=== PATIENT | female | born 2000 | race Caucasian/White ===

== ENCOUNTER 2025-04-01 13:45 | Outpatient (RCR) | payer OTHER, SELFPAY ==
--- NOTE | 2024-12-31 16:48 | OT.OPPOC ---
Physical, Occupational & Speech Therapy At [facility] Rolando Akbar [id number] 2000 Visit Care Team Role Provider Type Doctor MD Aretha Family Provider Non-Staff Primary Care Provider Address: Phone: Fax: Jose Juan Harris DO Attending Provider Non-Staff Referring Provider Address: [address] [place] [address], [id number] Occupational Therapy Plan of Care OT Outpatient Adult Evaluation Start: 12/31/24 14:30 Freq: Status: Active Protocol: Document 12/31/24 14:30 (Rec: 12/30/24 17:49 [id number]) General Information - Adult Visit Information Visit Number 1 of 24 Plan of Care Dates 12/31/24-03/25/25 Insurance no PA;no copay/deductible;max OT benefit: 12 total Information visits, including eval Session Time Visit Start Date 12/31/24 Visit Start Time 14:30 Visit Stop Time 15:30 Setting Treatment Setting Outpatient Care Visit Type Note Type Initial Evaluation Referral Referring Physician Dr. 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), and a benign-appearing lesion in the distal radial diaphysis Social Information Social History It pretty much hurts from my hands to my shoulders all the time Patient Questionnaires Quick Dash- Upper Extremity Quick Dash UE Score 68.2 Quick Dash UE 60 to 79% Impaired (Score 60-79) Impairment Quick Dash- Work and Sports Modules Quick Dash W&S Score W: 75 Quick Dash Work and 60 to 79% Impaired (Score 60-79) Sport Impairment Goals Objective Measurements Objective Cozen's (+ bilaterally), Wagoner (+ bilaterally), Measurements Lesia's (+ bilaterally), AROM/MMT WFL BUE, Treatment Treatment Patient engaged in initial evaluation including comprehensive history intake, review of recent left wrist MRI findings, and functional status assessment. Objective measurements obtained included bilateral upper extremity AROM for wrists, elbows, and forearms, palpation for tenderness and cyst location, special tests (positive Cozen?s, Mill?s, and Lesia?s bilaterally), and functional assessment using patient- reported outcomes. Education provided on joint protection strategies, concern for immune or inflammatory response with information on anti- inflammatory diets and nervous system regulation strategies, activity modification to reduce mechanical load to wrists and elbows, and gentle pain-free mobility exercises for wrists and forearms. Reviewed potential biomechanical contributors (wedding coordinator and load mechanics, carrying strategies for child) and discussed role of systemic inflammation in symptom presentation. Initiated gentle, pain-free tendon glides and isometric wrist extension (elbows flexed) as tolerated. Short Term Goals Short Term Goals Within 5 weeks: 1. Patient will demonstrate independence with a joint protection HEP including pain-free AROM and isometric strengthening for wrists and elbows to support ADL performance. 2. Patient will report at least a 1?2 point decrease in average pain during light functional activities (e.g., typing, holding a cup) as measured by numeric pain rating scale. 3. Patient will complete wedding coordinator strength assessment and demonstrate improved wedding coordinator strength by at least 3?5 lbs bilaterally without increase in pain. 4. Patient will verbalize and demonstrate 3 ergonomic or activity modification strategies to reduce mechanical load to wrists/elbows during childcare tasks . 5. Patient will tolerate at least 10 minutes of light functional use of BUEs without need to stop due to pain . Fish Hatchery Worker Goals Nursing Home Goals Within 10 weeks: 1. Patient will demonstrate improved perception of functional independence as demonstrated by a QuickDASH score of </=25. 2. Patient will report ability to complete essential childcare tasks (lifting/carrying child, dressing, meal prep) with pain =2/10. 3. Per patient report, patient will complete a full day of light household and childcare activities without increased pain >1 point from baseline. 4. Patient will demonstrate tolerance for progressive resistive strengthening of wrists and forearms without symptom exacerbation. Assessment/Plan Assessment Patient Response Good Rehabilitation Good Potential Impairments ADLs,Coordination/Dexterity,Flexibility,Functional Identified Activities,Motor Function,Pain,Range of Motion, Recreational Activities,Meaningful Activities,Stiffness ,Work Capacity,Soft Tissue Mobility Treatment Assessment 24-year-old female referred for right wrist sprain, left lateral epicondylitis, and ganglion cyst of the left wrist, with MRI confirming a 3.1 cm dorsal ganglion cyst at the scapholunate articulation, a high- grade central disc tear of the triangular fibrocartilage complex (TFCC), and a benign-appearing lesion in the distal radial diaphysis. She reports symptom onset approximately four months ago with no clear inciting injury, bilateral presentation of pain in wrists, forearms, and elbows radiating proximally into biceps and scapulae, and constant discomfort rated 4?5/10. Pain is aggravated by gripping, lifting, pushing, typing, writing, washing dishes, and caring for her [id number]-zos child. She demonstrates positive provocative testing for lateral epicondylitis and De Quervain?s tenosynovitis bilaterally, with diffuse pain patterns inconsistent with isolated mechanical injury, suggesting a possible systemic inflammatory process. Patient has a rheumatology appointment scheduled for further evaluation of potential autoimmune etiology given symptom chronicity, distribution, and coexisting systemic complaints. At present, she is significantly limited in ADL and childcare activities for her age and prior functional level. She will benefit from skilled occupational therapy focused on pain management, joint protection, gentle mobility, activity modification, and gradual strengthening while awaiting further medical workup. Reviewed with Goals,Progress Being Made,Home Exercise Program Patient Patient Good Understanding Plan Length of treatment 12 (weeks) Plan of Care Start 12/31/24 Date Plan of Care End 03/25/25 Date Treatment Frequency Twice a Week Treatment Duration 45 Minutes Treatment Emphasis Program Lead/pinch strength testing, kapandji, Next Session Therapeutic Contents Active Range of Motion,Adaptive Equipment Education, Client Education,Functional Activities,Group Therapy, Home Exercise Program,Manual Therapy,Education,Self- Care,Stretching/Flexibility Activities,Therapeutic Activities,Therapeutic Exercises,Work Conditioning, Modalities Modalities As Needed Types of Modalities Ice Massage,Other Additional Types of MHP, Paraffin Modalities Patient Instruction Home Exercise Program,Plan of Care,Questions/Concerns Patient Continue with Current Program Recommendations Suggested Referrals Other Other Suggested functional medicine, rheumatology (pending appt Referrals scheduled per pt) Electronically Signed by: Isabella Haro OT 12/31/24 [id number] If you are in agreement with this Plan of Care, please return a signed and dated copy. I have reviewed this Plan of Care and certify that the skilled therapy services above are required to meet the patient?s needs. Physician Signature Date Printed Name and Credentials Clinical Instructor Signature Printed Name and Credentials
--- NOTE | 2025-01-05 12:43 | OT.OP.TRT ---
Visit Care Team Role Provider Type Doctor MD Aretha Family Provider Non-Staff Primary Care Provider Specialty: Medical Address: Phone: Fax: Email: Jose Juan Harris DO Attending Provider Non-Staff Referring Provider Specialty: Orthopedic Surgery Address: [address] [place] [address], [id number] Email: Occupational Therapy Treatment Note OT Outpatient Treatment Note - Adult Start: 12/30/24 17:44 Freq: Status: Active Protocol: Document 01/05/25 10:45 (Rec: 01/05/25 08:20 [id number]) OT Outpatient Adult Treatment Note Session Time Visit Start Date 01/05/25 Visit Start Time 10:45 Visit Stop Time 11:30 Visit Information Visit Number 1 of 24 Plan of Care Dates 12/31/24-03/25/25 Insurance no PA;no copay/deductible;max OT benefit: 12 total Information visits Setting Treatment Setting Outpatient Care Visit Type Note Type Treatment Note - Subjective Identification Type Name Identification Medical Record Reconciled With Observations I have no idea when I would have hurt my wrist? (re: TFCC injury) - Objective Objective Right hand: Measurements Turret Lathe Machinist: (/lb) - Average 25lb 3 Jaw maxwell pinch - 8lb Lateral pinch - 16lb Left hand: Turret Lathe Machinist: (05/02/16lb) - Average 14lb 3 Jaw maxwell pinch - 11.5lb Lateral pinch - 13lb Kapandji scores: R - 2, L - 3 Short Term Goals Within 5 weeks: 1. Patient will demonstrate independence with a joint protection HEP including pain-free AROM and isometric strengthening for wrists and elbows to support ADL performance. 2. Patient will report at least a 1?2 point decrease in average pain during light functional activities (e.g., typing, holding a cup) as measured by numeric pain rating scale. 3. Patient will complete physical meteorologist strength assessment and demonstrate improved physical meteorologist strength by at least 3?5 lbs bilaterally without increase in pain. 4. Patient will verbalize and demonstrate 3 ergonomic or activity modification strategies to reduce mechanical load to wrists/elbows during childcare tasks . 5. Patient will tolerate at least 10 minutes of light functional use of BUEs without need to stop due to pain . Service Control Operator Goals Within 10 weeks: 1. Patient will demonstrate improved perception of functional independence as demonstrated by a QuickDASH score of </=25. 2. Patient will report ability to complete essential childcare tasks (lifting/carrying child, dressing, meal prep) with pain =2/10. 3. Per patient report, patient will complete a full day of light household and childcare activities without increased pain >1 point from baseline. 4. Patient will demonstrate tolerance for progressive resistive strengthening of wrists and forearms without symptom exacerbation. - Treatment 1 Descriptor Patient participated in therapeutic application of moist heat pack to bilateral wrists/forearms for 10 minutes for soft tissue warm-up and pain modulation while reviewing subjective history and current concerns . Patient reported episodes of hand ?locking? when holding cold objects (e.g., beverage can), though not when immersed in cold water. Home exercise program was briefly reviewed, including tendon glides and wrist/ hand AROM, with plan for further reinforcement next visit. Kinesiotape was applied bilaterally for lateral epicondylitis and De Quervain?s tenosynovitis, with additional supportive application on the left wrist for TFCC injury. Patient reported the tape felt supportive and comfortable. Education provided regarding purpose and expected outcomes of kinesiotaping, skin care, and monitoring for adverse reactions (redness, itching, blistering). - Assessment Patient Response to Good Treatment Rehabilitation Good Potential Impairments ADLs,Coordination/Dexterity,Flexibility,Functional Identified Activities,Motor Function,Pain,Weakness,Range of Motion ,Recreational Activities,Meaningful Activities, Stiffness,Work Capacity,Soft Tissue Mobility Progress Towards Good Progress Goals Assessment of Improving Overall Progress Assessment of Patient continues to present with complex bilateral Improvement upper extremity pain and functional limitations. Turret Lathe Machinist strength is reduced bilaterally, more pronounced on the left (R: 25 lb, L: 14 lb), with variable pinch strength that does not follow a clear dominance pattern (R stronger in lateral pinch, L stronger in 3-jaw maxwell). These findings further support her report of diffuse, non-mechanical pain and weakness patterns. Episodes of ?locking? with cold exposure suggest possible neurovascular or autonomic involvement in addition to underlying structural wrist pathology and systemic inflammatory contributions. No clear mechanism was identified for left TFCC injury, and chronicity remains uncertain. Today?s session prioritized pain modulation, baseline strength measurement, and proprioceptive support through thermal modalities and kinesiotaping. Patient demonstrated positive subjective response to taping, reporting increased support and decreased strain at the wrists. Given her significant functional restrictions, objective weakness, and systemic symptom profile, she will continue to benefit from skilled OT to support joint protection, activity modification, and functional use of the upper extremities while awaiting rheumatology evaluation. Home Exercise tendon glides of hand, AROM (wrist flex/ext, ulnar/ Program radial deviation, supination/pronation), isometric wrist ext, scapular retraction/depression, chin tucks in supine, pec stretch, supine thoracic extension Reviewed with Goals,Progress Being Made,Home Exercise Program Patient/Caregiver Patient/Caregiver Good Understanding - Plan Therapy Continue with Current Program Recommendations Amount of Therapy 3-4 Months Recommended Frequency of Twice a Week Treatment Length of Session 45 Minutes Treatment Emphasis review HEP Next Session Therapeutic Contents Active Range of Motion,Adaptive Equipment Education, Client Education,Functional Activities,Group Therapy, Home Exercise Program,Manual Therapy,Education,Self- Care,Stretching/Flexibility Activities,Therapeutic Activities,Therapeutic Exercises,Work Conditioning, Modalities Modalities As Needed Types of Modalities Ice Massage,Other Additional Types of MHP, Paraffin Modalities Other Referrals functional medicine, rheumatology (pending appt scheduled per pt)
--- NOTE | 2025-01-08 13:33 | OT.OP.TRT ---
Visit Care Team Role Provider Type Doctor MD Aretha Family Provider Non-Staff Primary Care Provider Specialty: Medical Address: Phone: Fax: Email: Jose Juan Harris DO Attending Provider Non-Staff Referring Provider Specialty: Orthopedic Surgery Address: [address] [place] [address], [id number] Email: Occupational Therapy Treatment Note OT Outpatient Treatment Note - Adult Start: 12/30/24 17:44 Freq: Status: Active Protocol: Document 01/08/25 11:30 (Rec: 01/07/25 17:23 [id number]) OT Outpatient Adult Treatment Note Session Time Visit Start Date 01/08/25 Visit Start Time 11:30 Visit Stop Time 12:15 Visit Information Visit Number 3 of 24 Plan of Care Dates 12/31/24-03/25/25 Insurance no PA;no copay/deductible;max OT benefit: 12 total Information visits Setting Treatment Setting Outpatient Care Visit Type Note Type Treatment Note - Subjective Identification Type Name Identification Medical Record Reconciled With Observations I have a rheumatology appt next week and a new referral to see a neurologist Patient/Caregiver Good Compliance with Home Exercise Program - Objective Short Term Goals Within 5 weeks: 1. Patient will demonstrate independence with a joint protection HEP including pain-free AROM and isometric strengthening for wrists and elbows to support ADL performance. 2. Patient will report at least a 1?2 point decrease in average pain during light functional activities (e.g., typing, holding a cup) as measured by numeric pain rating scale. 3. Patient will complete sales manager prearranged funerals strength assessment and demonstrate improved sales manager prearranged funerals strength by at least 3?5 lbs bilaterally without increase in pain. 4. Patient will verbalize and demonstrate 3 ergonomic or activity modification strategies to reduce mechanical load to wrists/elbows during childcare tasks . 5. Patient will tolerate at least 10 minutes of light functional use of BUEs without need to stop due to pain . Scow Captain Goals Within 10 weeks: 1. Patient will demonstrate improved perception of functional independence as demonstrated by a QuickDASH score of </=25. 2. Patient will report ability to complete essential childcare tasks (lifting/carrying child, dressing, meal prep) with pain =2/10. 3. Per patient report, patient will complete a full day of light household and childcare activities without increased pain >1 point from baseline. 4. Patient will demonstrate tolerance for progressive resistive strengthening of wrists and forearms without symptom exacerbation. - Treatment 1 Descriptor Patient participated in paraffin warm-up to bilateral hands/wrists for pain modulation and soft tissue preparation. Reviewed and practiced home exercise program including tendon glides, wrist AROM, isometric wrist extension, and scapular retraction/depression, with good return demonstration with mod verbal cues for proper positioning and muscle activation and patient reporting compliance. Patient shared she has been practicing [employer]rape yoga independently and notices reduced tension and stress following sessions. Vibrational therapy was provided using tuning fork sequence targeting parasympathetic activation, wrist/elbow pain modulation, and sensory integration, with patient reporting overall positive response and reduced tension afterward. Kinesiotape was reapplied with ongoing education provided and tape applied to bilateral forearms/wrists for support of lateral epicondylitis, De Quervain?s tenosynovitis, and left TFCC region. Patient reported tape continues to provide support and minimizes symptoms, and education was reviewed on tape maintenance and monitoring skin for irritation. Verbal Cues Mod Cues Exercises 1 Descriptor 1x5 reps for return demo, pt reporting good compliance requiring on going reinforcement of proper positioning/ posture Tendon glides/wrist AROM Isometric wrist ext(dorsal) Scapular retraction/depression Towel slides Side Both Visual Cues Mod Cues Verbal Cues Mod Cues - Assessment Patient Response to Good Treatment Rehabilitation Good Potential Impairments ADLs,Coordination/Dexterity,Flexibility,Functional Identified Activities,Motor Function,Pain,Weakness,Range of Motion ,Recreational Activities,Meaningful Activities, Stiffness,Work Capacity,Soft Tissue Mobility Progress Towards Good Progress Goals Assessment of Improving Overall Progress Assessment of Patient demonstrates good engagement in her home Improvement exercise program and complementary practices such as Yin yoga, with subjective improvements in stress regulation. She continues to benefit from multimodal interventions including thermal modalities, therapeutic exercise, vibrational therapy, and kinesiotaping for symptom management and functional support. Her positive response to both tuning fork sequence and kinesiotape suggests these strategies are helpful in decreasing pain perception and improving proprioceptive support for the wrists. Pt reporting upcoming rheumatology appt and new referral for neurology consult for further investigation of systemic symptoms. Ongoing skilled OT remains indicated to reinforce exercise progression, provide joint protection strategies, and manage symptoms while she awaits further medical workup with rheumatology and neurology. Home Exercise tendon glides of hand, AROM (wrist flex/ext, ulnar/ Program radial deviation, supination/pronation), isometric wrist ext, scapular retraction/depression, chin tucks in supine, pec stretch, supine thoracic extension Reviewed with Goals,Progress Being Made,Home Exercise Program Patient/Caregiver Patient/Caregiver Good Understanding - Plan Therapy Continue with Current Program Recommendations Amount of Therapy 3-4 Months Recommended Frequency of Twice a Week Treatment Length of Session 45 Minutes Treatment Emphasis review HEP Next Session Therapeutic Contents Active Range of Motion,Adaptive Equipment Education, Client Education,Functional Activities,Group Therapy, Home Exercise Program,Manual Therapy,Education,Self- Care,Stretching/Flexibility Activities,Therapeutic Activities,Therapeutic Exercises,Work Conditioning, Modalities Modalities As Needed Types of Modalities Ice Massage,Other Additional Types of MHP, Paraffin Modalities Other Referrals functional medicine, rheumatology (pending appt scheduled per pt)
--- NOTE | 2025-01-12 15:49 | OT.OP.TRT ---
Visit Care Team Role Provider Type Doctor MD Aretha Family Provider Non-Staff Primary Care Provider Specialty: Medical Address: Phone: Fax: Email: Jose Juan Harris DO Attending Provider Non-Staff Referring Provider Specialty: Orthopedic Surgery Address: [address] [place] [address], [id number] Email: Occupational Therapy Treatment Note OT Outpatient Treatment Note - Adult Start: 12/30/24 17:44 Freq: Status: Active Protocol: Document 01/12/25 13:00 (Rec: 01/12/25 10:02 [id number]) OT Outpatient Adult Treatment Note Session Time Visit Start Date 01/12/25 Visit Start Time 13:00 Visit Stop Time 13:45 Visit Information Visit Number 4 of 24 Plan of Care Dates 12/31/24-03/25/25 Insurance no PA;no copay/deductible;max OT benefit: 12 total Information visits Setting Treatment Setting Outpatient Care Visit Type Note Type Treatment Note - Subjective Identification Type Name Identification Medical Record Reconciled With Observations My hands have been locking up more Patient/Caregiver Good Compliance with Home Exercise Program - Objective Short Term Goals Within 5 weeks: 1. Patient will demonstrate independence with a joint protection HEP including pain-free AROM and isometric strengthening for wrists and elbows to support ADL performance. 2. Patient will report at least a 1?2 point decrease in average pain during light functional activities (e.g., typing, holding a cup) as measured by numeric pain rating scale. 3. Patient will complete explosive expert strength assessment and demonstrate improved explosive expert strength by at least 3?5 lbs bilaterally without increase in pain. 4. Patient will verbalize and demonstrate 3 ergonomic or activity modification strategies to reduce mechanical load to wrists/elbows during childcare tasks . 5. Patient will tolerate at least 10 minutes of light functional use of BUEs without need to stop due to pain . Detention Goals Within 10 weeks: 1. Patient will demonstrate improved perception of functional independence as demonstrated by a QuickDASH score of </=25. 2. Patient will report ability to complete essential childcare tasks (lifting/carrying child, dressing, meal prep) with pain =2/10. 3. Per patient report, patient will complete a full day of light household and childcare activities without increased pain >1 point from baseline. 4. Patient will demonstrate tolerance for progressive resistive strengthening of wrists and forearms without symptom exacerbation. - Treatment 1 Descriptor Patient engaged in education and discussion regarding strategies for nervous system regulation and distinction between autoimmune disease processes versus peripheral nerve irritation. Reviewed lifestyle and self-regulation strategies including Yin yoga, breathwork, meditation, and relaxation practices. Discussed use of Epsom salt soaks or magnesium topical applications for muscle relaxation, as patient does not have access to a bathtub. Patient verbalized understanding of strategies and interest in exploring options that best fit her preferences. Exercises 1 Descriptor - Tendon glides ? slow, pain-free through all four positions. - Wrist AROM ? flex/ext, RD/UD, pronation/supination ( document which ranges increase pain). - Isometric wrist extension ? 3?5 reps, 5 sec holds. - Scapular retraction/depression ? seated/supine with cues for posture. - Chin tucks (supine, with towel roll). - Thoracic extension over towel/foam roll. - Doorway pec stretch. Visual Cues Min Cues Verbal Cues Min Cues - Assessment Patient Response to Good Treatment Rehabilitation Good Potential Impairments ADLs,Coordination/Dexterity,Flexibility,Functional Identified Activities,Motor Function,Pain,Weakness,Range of Motion ,Recreational Activities,Meaningful Activities, Stiffness,Work Capacity,Soft Tissue Mobility Progress Towards Good Progress Goals Assessment of Improving Overall Progress Assessment of Patient demonstrated good participation in today?s Improvement session with appropriate response to therapeutic exercise review and continued benefit from nervous system regulation strategies. She required only minimal cueing to complete targeted exercises with correct form and showed good understanding of how to integrate them at home. Education on self-regulation strategies was well received, and patient is motivated to trial relaxation practices that support downregulation. She continues to benefit from a combined approach of exercise for joint/muscle stability and therapeutic activity for nervous system support, and will progress as tolerated in future sessions. Home Exercise tendon glides of hand, AROM (wrist flex/ext, ulnar/ Program radial deviation, supination/pronation), isometric wrist ext, scapular retraction/depression, chin tucks in supine, pec stretch, supine thoracic extension Reviewed with Goals,Progress Being Made,Home Exercise Program Patient/Caregiver Patient/Caregiver Good Understanding - Plan Therapy Continue with Current Program Recommendations Amount of Therapy 3-4 Months Recommended Frequency of Twice a Week Treatment Length of Session 45 Minutes Treatment Emphasis review HEP Next Session Therapeutic Contents Active Range of Motion,Adaptive Equipment Education, Client Education,Functional Activities,Group Therapy, Home Exercise Program,Manual Therapy,Education,Self- Care,Stretching/Flexibility Activities,Therapeutic Activities,Therapeutic Exercises,Work Conditioning, Modalities Modalities As Needed Types of Modalities Ice Massage,Other Additional Types of MHP, Paraffin Modalities Other Referrals functional medicine, rheumatology (pending appt scheduled per pt)
--- NOTE | 2025-01-15 09:35 | OT.OP.TRT ---
Visit Care Team Role Provider Type Doctor MD Aretha Family Provider Non-Staff Primary Care Provider Specialty: Medical Address: Phone: Fax: Email: Jose Juan Harris DO Attending Provider Non-Staff Referring Provider Specialty: Orthopedic Surgery Address: [address] [place] [address], [id number] Email: Occupational Therapy Treatment Note OT Outpatient Treatment Note - Adult Start: 12/30/24 17:44 Freq: Status: Active Protocol: Document 01/15/25 08:15 (Rec: 01/14/25 17:49 [id number]) OT Outpatient Adult Treatment Note Session Time Visit Start Date 01/15/25 Visit Start Time 08:15 Visit Stop Time 09:00 Visit Information Visit Number 5 of 24 Plan of Care Dates 12/31/24-03/25/25 Insurance no [place];no copay/deductible;max OT benefit: 12 total Information visits Setting Treatment Setting Outpatient Care Visit Type Note Type Treatment Note - Subjective Identification Type Name Identification Medical Record Reconciled With Observations I am noticing more mobility in my shoulders for sure, but the photovoltaic subcontractor seemed really sure it wasn't lupus Patient/Caregiver Good Compliance with Home Exercise Program - Objective Short Term Goals Within 5 weeks: 1. Patient will demonstrate independence with a joint protection HEP including pain-free AROM and isometric strengthening for wrists and elbows to support ADL performance. 2. Patient will report at least a 1?2 point decrease in average pain during light functional activities (e.g., typing, holding a cup) as measured by numeric pain rating scale. 3. Patient will complete shot blast equipment operator strength assessment and demonstrate improved shot blast equipment operator strength by at least 3?5 lbs bilaterally without increase in pain. 4. Patient will verbalize and demonstrate 3 ergonomic or activity modification strategies to reduce mechanical load to wrists/elbows during childcare tasks . 5. Patient will tolerate at least 10 minutes of light functional use of BUEs without need to stop due to pain . Certified Medical Biller Goals Within 10 weeks: 1. Patient will demonstrate improved perception of functional independence as demonstrated by a QuickDASH score of </=25. 2. Patient will report ability to complete essential childcare tasks (lifting/carrying child, dressing, meal prep) with pain =2/10. 3. Per patient report, patient will complete a full day of light household and childcare activities without increased pain >1 point from baseline. 4. Patient will demonstrate tolerance for progressive resistive strengthening of wrists and forearms without symptom exacerbation. - Treatment 1 Descriptor Kinesiotape was reapplied bilaterally for joint and tendon support, including dorsal forearm strip for extensors/lateral epicondyle and Y-cuff around the wrist for TFCC/general stability. Patient reported continued benefit from taping. Vibrational therapy was performed using both weighted and unweighted tuning forks; minimal response was noted with weighted application, however patient reported a strong positive sensory response during unweighted clearing passes, describing the sensation as warmth or light touch without discomfort. Patient education provided regarding recent rheumatology labs and impressions, including discussion of differential diagnoses and available specialty resources. Reviewed the role of functional medicine and/or data report analyst consultation for guidance with anti-inflammatory diets and supplementation. Support groups and community resources for individuals with chronic autoimmune or systemic pain conditions were recommended. Patient demonstrated understanding and expressed interest in exploring integrative approaches. Exercises 1 Descriptor - Tendon glides ? slow, pain-free through all four positions. - Wrist AROM ? flex/ext, RD/UD, pronation/supination ( document which ranges increase pain). - Isometric wrist extension ? 3?5 reps, 5 sec holds. - Scapular retraction/depression ? seated/supine with cues for posture. - Chin tucks (supine, with towel roll). - Thoracic extension over towel/foam roll. - Doorway pec stretch. Visual Cues Min Cues Verbal Cues Min Cues - Assessment Patient Response to Good Treatment Rehabilitation Good Potential Impairments ADLs,Coordination/Dexterity,Flexibility,Functional Identified Activities,Motor Function,Pain,Weakness,Range of Motion ,Recreational Activities,Meaningful Activities, Stiffness,Work Capacity,Soft Tissue Mobility Progress Towards Good Progress Goals Assessment of Improving Overall Progress Assessment of Patient continues to demonstrate benefit from Improvement multimodal treatment including supportive taping, targeted exercise, and vibrational therapy. Stronger response was noted with unweighted tuning fork clearing passes, suggesting sensitivity to sensory integration input. She demonstrates good carryover of home program with minimal cueing, and subjective report of increased shoulder mobility indicates early positive adaptation. Ongoing OT remains indicated to support joint protection, functional strengthening, and nervous system regulation while interdisciplinary evaluation continues. Home Exercise tendon glides of hand, AROM (wrist flex/ext, ulnar/ Program radial deviation, supination/pronation), isometric wrist ext, scapular retraction/depression, chin tucks in supine, pec stretch, supine thoracic extension Reviewed with Goals,Progress Being Made,Home Exercise Program Patient/Caregiver Patient/Caregiver Good Understanding - Plan Therapy Continue with Current Program Recommendations Amount of Therapy 3-4 Months Recommended Frequency of Twice a Week Treatment Length of Session 45 Minutes Therapeutic Contents Active Range of Motion,Adaptive Equipment Education, Client Education,Functional Activities,Group Therapy, Home Exercise Program,Manual Therapy,Education,Self- Care,Stretching/Flexibility Activities,Therapeutic Activities,Therapeutic Exercises,Work Conditioning, Modalities Modalities As Needed Types of Modalities Ice Massage,Other Additional Types of MHP, Paraffin Modalities Other Referrals functional medicine, rheumatology (pending appt scheduled per pt)
--- NOTE | 2025-01-19 13:00 | OT.OP.TRT ---
Visit Care Team Role Provider Type Doctor MD Aretha Family Provider Non-Staff Primary Care Provider Specialty: Medical Address: Phone: Fax: Email: Jose Juan Harris DO Attending Provider Non-Staff Referring Provider Specialty: Orthopedic Surgery Address: [address] [place] [address], [phone] Email: Occupational Therapy Treatment Note OT Outpatient Treatment Note - Adult Start: 12/30/24 17:44 Freq: Status: Active Protocol: Document 01/19/25 10:45 (Rec: 01/15/25 18:48 [id number]) OT Outpatient Adult Treatment Note Session Time Visit Start Date 01/19/25 Visit Start Time 10:45 Visit Stop Time 11:30 Visit Information Visit Number 6 of 24 Plan of Care Dates 12/31/24-03/25/25 Insurance no [place];no copay/deductible;max OT benefit: 12 total Information visits Setting Treatment Setting Outpatient Care Visit Type Note Type Treatment Note - Subjective Identification Type Name Identification Medical Record Reconciled With Observations My brother attempted to hurt himself this weekend so stress has been very high Patient/Caregiver Good Compliance with Home Exercise Program - Objective Short Term Goals Within 5 weeks: 1. Patient will demonstrate independence with a joint protection HEP including pain-free AROM and isometric strengthening for wrists and elbows to support ADL performance. 2. Patient will report at least a 1?2 point decrease in average pain during light functional activities (e.g., typing, holding a cup) as measured by numeric pain rating scale. 3. Patient will complete life skills worker strength assessment and demonstrate improved life skills worker strength by at least 3?5 lbs bilaterally without increase in pain. 4. Patient will verbalize and demonstrate 3 ergonomic or activity modification strategies to reduce mechanical load to wrists/elbows during childcare tasks . 5. Patient will tolerate at least 10 minutes of light functional use of BUEs without need to stop due to pain . Infantry Officer Goals Within 10 weeks: 1. Patient will demonstrate improved perception of functional independence as demonstrated by a QuickDASH score of </=25. 2. Patient will report ability to complete essential childcare tasks (lifting/carrying child, dressing, meal prep) with pain =2/10. 3. Per patient report, patient will complete a full day of light household and childcare activities without increased pain >1 point from baseline. 4. Patient will demonstrate tolerance for progressive resistive strengthening of wrists and forearms without symptom exacerbation. - Treatment 1 Descriptor Patient education provided on self-massage techniques for right rhomboid and trapezius tension using foam roller, therapy ball, or theracane at home. Education also included progression of home program to incorporate isometric wrist flexion/extension and gradual weight bearing through upper extremities within pain-free range. Tuning fork sequence performed, with patient reporting neutral response to weighted forks but strong sensory integration response to unweighted clearing passes, including unexpected referred vibration sensation in right gluteal region. Patient also shared subjective improvements in overall sustained energy, including ability to walk around the fair without post-activity collapse, and reports using regulation and pacing strategies effectively despite recent family stressors. Exercises 1 Descriptor Patient participated in review and progression of home exercise program. Completed tendon glides, gentle wrist AROM, scapular retraction/depression, and isometric wrist flexion/extension with good tolerance. Weight bearing through bilateral upper extremities was introduced in quadruped-modified positioning using table support, with and without dot discs. Patient reported tolerance up to approximately 25% body weight, with improved comfort using dot discs compared to table surface alone. Patient required minimal verbal cues for correct positioning and demonstrated good return demonstration for 1 set of 10 for complete/ progressed HEP. Reports home program exercises continue to feel beneficial and help decrease pain, with good compliance noted. Verbal Cues Min Cues Tolerance Good Complexity Upgraded - Assessment Patient Response to Good Treatment Rehabilitation Good Potential Impairments ADLs,Coordination/Dexterity,Flexibility,Functional Identified Activities,Motor Function,Pain,Weakness,Range of Motion ,Recreational Activities,Meaningful Activities, Stiffness,Work Capacity,Soft Tissue Mobility Progress Towards Good Progress Goals Assessment of Improving Overall Progress Assessment of Patient demonstrates ongoing functional gains, Improvement including improved activity tolerance, reduced post- activity fatigue, and increased tolerance for weight bearing through bilateral upper extremities. She remains highly compliant with home program and is receptive to education on self-management strategies. Continued multimodal treatment including therapeutic exercise progression, joint protection, nervous system regulation, and vibrational therapy remains indicated to support functional independence and symptom management. Home Exercise tendon glides of hand, AROM (wrist flex/ext, ulnar/ Program radial deviation, supination/pronation), isometric wrist ext, scapular retraction/depression, chin tucks in supine, pec stretch, supine thoracic extension. Progressed 01/19/25 adding isometric wrist flex/BUE weight bearing within pain free range Reviewed with Goals,Progress Being Made,Home Exercise Program Patient/Caregiver Patient/Caregiver Good Understanding - Plan Therapy Continue with Current Program Recommendations Amount of Therapy 3-4 Months Recommended Frequency of Twice a Week Treatment Length of Session 45 Minutes Treatment Emphasis manual therapy to R shoulder Next Session Therapeutic Contents Active Range of Motion,Adaptive Equipment Education, Client Education,Functional Activities,Group Therapy, Home Exercise Program,Manual Therapy,Education,Self- Care,Stretching/Flexibility Activities,Therapeutic Activities,Therapeutic Exercises,Work Conditioning, Modalities Modalities As Needed Types of Modalities Ice Massage,Other Additional Types of MHP, Paraffin Modalities Other Referrals functional medicine, rheumatology (pending appt scheduled per pt)
--- NOTE | 2025-01-27 15:29 | OT.OPPN ---
Current Diagnoses Ganglion, left wrist (01/27/25) Lateral epicondylitis, left elbow (01/27/25) Unspecified sprain of right wrist, subsequent encounter (01/27/25) OT Progress Note OT Outpatient Treatment Note - Adult Start: 12/30/24 17:44 Freq: Status: Active Protocol: Document 01/27/25 13:45 (Rec: 01/20/25 13:03 [id number]) OT Outpatient Adult Treatment Note Session Time Visit Start Date 01/27/25 Visit Start Time 13:45 Visit Stop Time 14:30 Visit Information Visit Number 7 of 24 Plan of Care Dates 12/31/24-03/25/25 Insurance no [place];no copay/deductible;max OT benefit: 12 total Information visits Setting Treatment Setting Outpatient Care Visit Type Note Type Progress Note - Subjective Identification Type Name Identification Medical Record Reconciled With Observations I can really see progress with being able to hold my daughter more and way less pain overall even though there is still some tingling/numbness sometimes Patient/Caregiver Good Compliance with Home Exercise Program - Objective Short Term Goals Within 5 weeks: 1. Patient will demonstrate independence with a joint protection HEP including pain-free AROM and isometric strengthening for wrists and elbows to support ADL performance. [PROGRESSING 01/27/25] 2. Patient will report at least a 1?2 point decrease in average pain during light functional activities (e.g., typing, holding a cup) as measured by numeric pain rating scale. [MET 01/27/25] 3. Patient will complete high school admissions representative strength assessment and demonstrate improved high school admissions representative strength by at least 3?5 lbs bilaterally without increase in pain. [PROGRESING ] 4. Patient will verbalize and demonstrate 3 ergonomic or activity modification strategies to reduce mechanical load to wrists/elbows during childcare tasks . [PROGRESSING 01/27/25] 5. Patient will tolerate at least 10 minutes of light functional use of BUEs without need to stop due to pain . [PROGRESSING 01/27/25] Intermediate Goals Within 10 weeks: 1. Patient will demonstrate improved perception of functional independence as demonstrated by a QuickDASH score of </=25. [PROGRESSING 01/27/25] 2. Patient will report ability to complete essential childcare tasks (lifting/carrying child, dressing, meal prep) with pain =2/10. [PROGRESSING 01/27/25] 3. Per patient report, patient will complete a full day of light household and childcare activities without increased pain >1 point from baseline. [PROGRESSING 03/13] 4. Patient will demonstrate tolerance for progressive resistive strengthening of wrists and forearms without symptom exacerbation. [PROGRESSING 01/27/25] - Treatment 1 Descriptor Patient participated in review and progression of therapeutic exercises with emphasis on postural and scapular stabilization. Current HEP includes thoracic extension, pectoralis stretching, modified planks at wall/table, and median/ulnar nerve flossing. Reviewed and reintroduced scapular retraction/depression and serratus punches, with addition of gentle levator scapulae stretching to be performed cautiously ( suggested once every other day to monitor tolerance). Patient required minimal cueing and demonstrated good return demonstration. She reports practicing foam rolling and trigger point release with tennis ball at home with good response. She described improved weight bearing tolerance during modified planks, noting no buckling, and reported decreased pain intensity overall (previously up to 6/10, now closer to 3/10 at worst). She was able to perform paperwork and childcare tasks with significantly less discomfort, though some mild cramping occurred after prolonged writing. Median/ulnar nerve glides were reviewed; patient reported they feel like a normal stretch without pain but may cause mild tingling if held too long, so education provided on gentle flossing within symptom threshold. Tuning fork application (136.1 Hz) performed to bilateral trapezius ; following treatment, patient was able to sustain cactus arm position without symptom onset. - Assessment Patient Response to Good Treatment Rehabilitation Good Potential Impairments ADLs,Coordination/Dexterity,Flexibility,Functional Identified Activities,Motor Function,Pain,Weakness,Range of Motion ,Recreational Activities,Meaningful Activities, Stiffness,Work Capacity,Soft Tissue Mobility Progress Towards Good Progress Goals Assessment of Improving Overall Progress Assessment of Patient is demonstrating excellent progress with Improvement decreased pain levels, improved postural tolerance, and greater functional independence in daily tasks such as childcare, writing, and sustained weight bearing. Positive response to both exercise progression and vibrational therapy was observed, particularly with reduced trapezial symptoms during cactus arm positioning post-treatment. She continues to demonstrate good understanding of home program principles, with fair exercise compliance but strong engagement in stress and tension management strategies. Given her significant symptom reduction and improvements in function, continued skilled OT remains indicated to further advance strengthening, postural stability, and functional endurance while carefully monitoring for symptom flare with progression. Home Exercise tendon glides of hand, AROM (wrist flex/ext, ulnar/ Program radial deviation, supination/pronation), isometric wrist ext, scapular retraction/depression, chin tucks in supine, pec stretch, supine thoracic extension. Progressed 01/19/25 adding isometric wrist flex/BUE weight bearing within pain free range, added levator scapulae stretch and serratus punches 01/27/25 Reviewed with Goals,Progress Being Made,Home Exercise Program Patient/Caregiver Patient/Caregiver Good Understanding - Plan Therapy Continue with Current Program Recommendations Amount of Therapy 3-4 Months Recommended Frequency of Twice a Week Treatment Length of Session 45 Minutes Treatment Emphasis manual therapy to R shoulder Next Session Therapeutic Contents Active Range of Motion,Adaptive Equipment Education, Client Education,Functional Activities,Group Therapy, Home Exercise Program,Manual Therapy,Education,Self- Care,Stretching/Flexibility Activities,Therapeutic Activities,Therapeutic Exercises,Work Conditioning, Modalities Modalities As Needed Types of Modalities Ice Massage,Other Additional Types of MHP, Paraffin Modalities Other Referrals functional medicine, rheumatology (pending appt scheduled per pt) If you are in agreement with this Plan of Care, please return a signed and dated copy. I have reviewed this Plan of Care and certify that the skilled therapy services above are required to meet the patient?s needs. Physician Signature Date Printed Name and Credentials Clinical Instructor Signature Printed Name and Credentials
--- NOTE | 2025-01-28 15:23 | OT.OP.TRT ---
Visit Care Team Role Provider Type Doctor MD Aretha Family Provider Non-Staff Primary Care Provider Specialty: Medical Address: Phone: Fax: Email: Jose Juan Harris DO Attending Provider Non-Staff Referring Provider Specialty: Orthopedic Surgery Address: [address] [place] [address], [id number] Email: Occupational Therapy Treatment Note OT Outpatient Treatment Note - Adult Start: 12/30/24 17:44 Freq: Status: Active Protocol: Document 01/28/25 11:30 (Rec: 01/28/25 09:16 [id number]) OT Outpatient Adult Treatment Note Session Time Visit Start Date 01/28/25 Visit Start Time 11:30 Visit Stop Time 12:15 Visit Information Visit Number [id number] Plan of Care Dates 12/31/24-03/25/25 Insurance no [place];no copay/deductible;max OT benefit: 12 total Information visits Setting Treatment Setting Outpatient Care Visit Type Note Type Treatment Note - Subjective Identification Type Name Identification Medical Record Reconciled With Observations I cannot believe how much better I am feeling! Patient/Caregiver Good Compliance with Home Exercise Program - Objective Short Term Goals Within 5 weeks: 1. Patient will demonstrate independence with a joint protection HEP including pain-free AROM and isometric strengthening for wrists and elbows to support ADL performance. [PROGRESSING 01/27/25] 2. Patient will report at least a 1?2 point decrease in average pain during light functional activities (e.g., typing, holding a cup) as measured by numeric pain rating scale. [MET 01/27/25] 3. Patient will complete dude wrangler strength assessment and demonstrate improved dude wrangler strength by at least 3?5 lbs bilaterally without increase in pain. [PROGRESING ] 4. Patient will verbalize and demonstrate 3 ergonomic or activity modification strategies to reduce mechanical load to wrists/elbows during childcare tasks . [PROGRESSING 01/27/25] 5. Patient will tolerate at least 10 minutes of light functional use of BUEs without need to stop due to pain . [PROGRESSING 01/27/25] Claim Representative Goals Within 10 weeks: 1. Patient will demonstrate improved perception of functional independence as demonstrated by a QuickDASH score of </=25. [PROGRESSING 01/27/25] 2. Patient will report ability to complete essential childcare tasks (lifting/carrying child, dressing, meal prep) with pain =2/10. [PROGRESSING 01/27/25] 3. Per patient report, patient will complete a full day of light household and childcare activities without increased pain >1 point from baseline. [PROGRESSING 03/13] 4. Patient will demonstrate tolerance for progressive resistive strengthening of wrists and forearms without symptom exacerbation. [PROGRESSING 01/27/25] - Manual Therapy Manual Therapy Session focused on manual therapy and vibrational input for cervical and scapular muscle tension. Tuning fork sequence applied for preparatory relaxation, with patient noting strong autonomic and sensory responses, including increased stomach activity during trapezius and rhomboid placements and scalp sensation when forks were passed near her head despite no direct contact. Contract-relax techniques were performed to bilateral trapezius and rhomboid muscle groups, supplemented with gentle soft tissue massage across the cervical and scapular regions. Patient reported significant subjective reduction in muscle tension with improved scapular glide and cervical/shoulder mobility. During contract-relax, localized trigger points elicited radiating sensations into bilateral upper extremities, which patient described as non-painful and similar to a deep stretch release. Patient reported sense of ? release? in left trapezius/neck and right rhomboid, contributing to improved ease of movement. - Assessment Patient Response to Good Treatment Rehabilitation Good Potential Impairments ADLs,Coordination/Dexterity,Flexibility,Functional Identified Activities,Motor Function,Pain,Weakness,Range of Motion ,Recreational Activities,Meaningful Activities, Stiffness,Work Capacity,Soft Tissue Mobility Progress Towards Good Progress Goals Assessment of Improving Overall Progress Assessment of Patient demonstrated excellent tolerance and strong Improvement positive response to combined vibrational therapy and manual contract-relax techniques. Findings suggest both muscular and neurofascial contributions to symptoms, with treatment facilitating improved mobility and reduced tension. Patient continues to make meaningful functional gains and subjectively reports ongoing symptom regression across daily activities. Skilled OT remains indicated to advance postural stability, maintain pain reduction, and continue blending biomechanical and nervous system regulation strategies to optimize functional recovery. Home Exercise tendon glides of hand, AROM (wrist flex/ext, ulnar/ Program radial deviation, supination/pronation), isometric wrist ext, scapular retraction/depression, chin tucks in supine, pec stretch, supine thoracic extension. Progressed 01/19/25 adding isometric wrist flex/BUE weight bearing within pain free range, added levator scapulae stretch and serratus punches 01/27/25 Reviewed with Goals,Progress Being Made,Home Exercise Program Patient/Caregiver Patient/Caregiver Good Understanding - Plan Therapy Continue with Current Program Recommendations Amount of Therapy 3-4 Months Recommended Frequency of Twice a Week Treatment Length of Session 45 Minutes Treatment Emphasis manual therapy to R shoulder Next Session Therapeutic Contents Active Range of Motion,Adaptive Equipment Education, Client Education,Functional Activities,Group Therapy, Home Exercise Program,Manual Therapy,Education,Self- Care,Stretching/Flexibility Activities,Therapeutic Activities,Therapeutic Exercises,Work Conditioning, Modalities Modalities As Needed Types of Modalities Ice Massage,Other Additional Types of MHP, Paraffin Modalities Other Referrals functional medicine, rheumatology (pending appt scheduled per pt)
--- NOTE | 2025-02-16 12:31 | OT.OP.TRT ---
Visit Care Team Role Provider Type Doctor MD Aretha Family Provider Non-Staff Primary Care Provider Specialty: Medical Address: Phone: Fax: Email: Jose Juan Harris DO Attending Provider Non-Staff Referring Provider Specialty: Orthopedic Surgery Address: [address] [place] [address], [id number] Email: Occupational Therapy Treatment Note OT Outpatient Treatment Note - Adult Start: 12/30/24 17:44 Freq: Status: Active Protocol: Document 02/16/25 11:07 (Rec: 02/16/25 11:12 [id number]) OT Outpatient Adult Treatment Note Session Time Visit Start Date 02/16/25 Visit Start Time 10:45 Visit Stop Time 11:30 Visit Information Visit Number 9 of 24 Plan of Care Dates 12/31/24-03/25/25 Insurance no [place];no copay/deductible;max OT benefit: 12 total Information visits Setting Treatment Setting Outpatient Care Visit Type Note Type Treatment Note General Information General Information x-rays of elbow/wrist unremarkable, - Subjective Identification Type Name Identification Medical Record Reconciled With Observations The new job is doing great! I've been stretching and much less pain going about things that require lifting Patient/Caregiver Good Compliance with Home Exercise Program - Objective Short Term Goals Within 5 weeks: 1. Patient will demonstrate independence with a joint protection HEP including pain-free AROM and isometric strengthening for wrists and elbows to support ADL performance. [PROGRESSING 01/27/25] 2. Patient will report at least a 1?2 point decrease in average pain during light functional activities (e.g., typing, holding a cup) as measured by numeric pain rating scale. [MET 01/27/25] 3. Patient will complete double end tenoner operator strength assessment and demonstrate improved double end tenoner operator strength by at least 3?5 lbs bilaterally without increase in pain. [PROGRESING ] 4. Patient will verbalize and demonstrate 3 ergonomic or activity modification strategies to reduce mechanical load to wrists/elbows during childcare tasks . [PROGRESSING 01/27/25] 5. Patient will tolerate at least 10 minutes of light functional use of BUEs without need to stop due to pain . [PROGRESSING 01/27/25] Retirement Goals Within 10 weeks: 1. Patient will demonstrate improved perception of functional independence as demonstrated by a QuickDASH score of </=25. [PROGRESSING 01/27/25] 2. Patient will report ability to complete essential childcare tasks (lifting/carrying child, dressing, meal prep) with pain =2/10. [PROGRESSING 01/27/25] 3. Per patient report, patient will complete a full day of light household and childcare activities without increased pain >1 point from baseline. [PROGRESSING 03/13] 4. Patient will demonstrate tolerance for progressive resistive strengthening of wrists and forearms without symptom exacerbation. [PROGRESSING 01/27/25] - Treatment 1 Descriptor Reviewed results of recent specialty appointments including unremarkable wrist/elbow imaging by orthopedics and initiation of audiology evaluation for hearing aids. Patient reported continued significant SI joint pain, with plan to pursue pelvic PT. Discussed emotional stressors related to recent family events and coping strategies. Reviewed stretches and home exercise program following two-week break in skilled therapy; patient demonstrated independent return demonstration of all assigned exercises with good technique and reports good compliance. Patient reported exercises continue to be helpful in reducing symptoms and improving function. Performed brief tuning fork sequence consisting of 136.1 Hz weighted fork to sternum for grounding, 128 Hz weighted fork to bilateral SI joints for local pain modulation, and 256 Hz unweighted sweeps to upper and lower extremities for integration. Patient noted mild shivers but no significant systemic response, and described overall positive effect. - Assessment Patient Response to Good Treatment Rehabilitation Good Potential Impairments ADLs,Coordination/Dexterity,Flexibility,Functional Identified Activities,Motor Function,Pain,Weakness,Range of Motion ,Recreational Activities,Meaningful Activities, Stiffness,Work Capacity,Soft Tissue Mobility Progress Towards Good Progress Goals Assessment of Improving Overall Progress Assessment of Patient demonstrates excellent progress with reduced Improvement pain intensity, improved functional tolerance, and consistent compliance with all therapeutic strategies. She independently returns demonstrations of HEP and reports sustained benefit. Specialty evaluations have ruled out structural pathology of the upper extremities and patient is pursuing pelvic PT for SI-related symptoms. She continues to respond well to multimodal treatment, with tuning fork interventions supporting relaxation and downregulation. Skilled OT remains appropriate to progress strengthening and functional endurance while supporting symptom management and stress regulation. Home Exercise tendon glides of hand, AROM (wrist flex/ext, ulnar/ Program radial deviation, supination/pronation), isometric wrist ext, scapular retraction/depression, chin tucks in supine, pec stretch, supine thoracic extension. Progressed 01/19/25 adding isometric wrist flex/BUE weight bearing within pain free range, added levator scapulae stretch and serratus punches 01/27/25 Reviewed with Goals,Progress Being Made,Home Exercise Program Patient/Caregiver Patient/Caregiver Good Understanding - Plan Therapy Continue with Current Program Recommendations Amount of Therapy 3-4 Months Recommended Frequency of Twice a Week Treatment Length of Session 45 Minutes Treatment Emphasis manual therapy to R shoulder Next Session Therapeutic Contents Active Range of Motion,Adaptive Equipment Education, Client Education,Functional Activities,Group Therapy, Home Exercise Program,Manual Therapy,Education,Self- Care,Stretching/Flexibility Activities,Therapeutic Activities,Therapeutic Exercises,Work Conditioning, Modalities Modalities As Needed Types of Modalities Ice Massage,Other Additional Types of MHP, Paraffin Modalities Other Referrals functional medicine,
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
--- NOTE | 2025-02-24 16:44 | OT.OPPN ---
Current Diagnoses Ganglion, left wrist (02/24/25) Lateral epicondylitis, left elbow (02/24/25) Unspecified sprain of right wrist, subsequent encounter (02/24/25) OT Progress Note OT Outpatient Treatment Note - Adult Start: 12/30/24 17:44 Freq: Status: Active Protocol: Document 02/24/25 14:30 (Rec: 02/23/25 14:15 [id number]) OT Outpatient Adult Treatment Note Session Time Visit Start Date 02/24/25 Visit Start Time 14:30 Visit Stop Time 15:15 Visit Information Visit Number 11 of 24 Plan of Care Dates 12/31/24-03/25/25 Insurance no [place];no copay/deductible;max OT benefit: 12 total Information visits Setting Treatment Setting Outpatient Care Visit Type Note Type Progress Note General Information General Information Requesting extension of POC date and more visits as patient is making excellent progress with improvements in pain and function but patient continues to demonstrate variable symptom provocation and continues to be limited in functional performance of ADL and IADL tasks and requires continues skilled OT to restore functional independence. - Subjective Identification Type Name Identification Medical Record Reconciled With Observations My back locked up last week but I haven't had anymore BP or HR issues since I saw you last thankfully! Patient/Caregiver Good Compliance with Home Exercise Program - Objective Short Term Goals Within 5 weeks: 1. Patient will demonstrate independence with a joint protection HEP including pain-free AROM and isometric strengthening for wrists and elbows to support ADL performance. [MET 02/24/25] 2. Patient will report at least a 1?2 point decrease in average pain during light functional activities (e.g., typing, holding a cup) as measured by numeric pain rating scale. [MET 01/27/25] 3. Patient will complete geospatial technologist strength assessment and demonstrate improved geospatial technologist strength by at least 3?5 lbs bilaterally without increase in pain. [PROGRESSING 02/24] 4. Patient will verbalize and demonstrate 3 ergonomic or activity modification strategies to reduce mechanical load to wrists/elbows during childcare tasks . [PROGRESSING 02/24/25] 5. Patient will tolerate at least 10 minutes of light functional use of BUEs without need to stop due to pain . [PROGRESSING 02/24/25] Assisted Goals Within 10 weeks: 1. Patient will demonstrate improved perception of functional independence as demonstrated by a QuickDASH score of </=25. [PROGRESSING 02/24/25] 2. Patient will report ability to complete essential childcare tasks (lifting/carrying child, dressing, meal prep) with pain =2/10. [PROGRESSING 02/24/25] 3. Per patient report, patient will complete a full day of light household and childcare activities without increased pain >1 point from baseline. [PROGRESSING 02/24/25] 4. Patient will demonstrate tolerance for progressive resistive strengthening of wrists and forearms without symptom exacerbation. [PROGRESSING 02/24/25] - Manual Therapy Manual Therapy Session focused on gentle manual and vibrational interventions addressing residual scapular and cervical muscle tension. Soft-tissue mobilization performed to bilateral rhomboids and paraspinal musculature with attention to areas of localized myofascial restriction. Noted small, tender nodular areas within right rhomboid consistent with mild fascial adhesion; tolerated with mild to moderate tenderness. Gentle contract?relax and sustained pressure techniques applied within pain-free limits. Vibrational therapy performed using weighted tuning forks for downregulation of nervous system, myofascial input, and muscular relaxation. Patient reported radiating but non-painful sensations from rhomboid to upper cervical area and described a sense of release and decreased tension through posterior neck and occipital region following treatment. No adverse events noted. Patient educated on continued home stretching with emphasis on thoracic extension, nerve glides, hydration , and monitoring for post-treatment soreness. - Assessment Patient Response to Good Treatment Rehabilitation Good Potential Impairments ADLs,Coordination/Dexterity,Flexibility,Functional Identified Activities,Motor Function,Pain,Weakness,Range of Motion ,Recreational Activities,Meaningful Activities, Stiffness,Work Capacity,Soft Tissue Mobility Progress Towards Good Progress Goals Assessment of Improving Overall Progress Assessment of Patient tolerated manual and vibrational interventions Improvement well with positive subjective response including decreased upper-back tension and improved shoulder mobility. Palpation findings of localized superficial adhesions and tenderness are consistent with residual myofascial restriction rather than acute injury. The radiating sensations reported during vibrational therapy are within expected neural referral patterns and resolved without discomfort. Overall, patient continues to demonstrate progressive reduction in pain intensity and improvement in soft- tissue mobility with excellent progress toward therapeutic goals. Ongoing skilled occupational therapy remains indicated to address postural endurance, scapular stabilization, and upper-extremity function while maintaining gentle manual and vibrational interventions as tolerated. Home Exercise tendon glides of hand, AROM (wrist flex/ext, ulnar/ Program radial deviation, supination/pronation), isometric wrist ext, scapular retraction/depression, chin tucks in supine, pec stretch, supine thoracic extension. Progressed 01/19/25 adding isometric wrist flex/BUE weight bearing within pain free range, added levator scapulae stretch and serratus punches 01/27/25 Reviewed with Goals,Progress Being Made,Home Exercise Program Patient/Caregiver Patient/Caregiver Good Understanding - Plan Therapy Continue with Current Program Recommendations Amount of Therapy 3-4 Months Recommended Frequency of Twice a Week Treatment Length of Session 45 Minutes Therapeutic Contents Active Range of Motion,Adaptive Equipment Education, Client Education,Functional Activities,Group Therapy, Home Exercise Program,Manual Therapy,Education,Self- Care,Stretching/Flexibility Activities,Therapeutic Activities,Therapeutic Exercises,Work Conditioning, Modalities Modalities As Needed Types of Modalities Ice Massage,Other Additional Types of MHP, Paraffin Modalities Other Referrals functional medicine, If you are in agreement with this Plan of Care, please return a signed and dated copy. I have reviewed this Plan of Care and certify that the skilled therapy services above are required to meet the patient?s needs. Physician Signature Date Printed Name and Credentials Clinical Instructor Signature Printed Name and Credentials
--- NOTE | 2025-03-02 15:01 | OT.OP.TRT ---
Visit Care Team Role Provider Type Doctor MD Aretha Family Provider Non-Staff Primary Care Provider Specialty: Medical Address: Phone: Fax: Email: Jose Juan Harris DO Attending Provider Non-Staff Referring Provider Specialty: Orthopedic Surgery Address: [address] [place] [address], [id number] Email: Occupational Therapy Treatment Note OT Outpatient Treatment Note - Adult Start: 12/30/24 17:44 Freq: Status: Active Protocol: Document 03/02/25 13:45 (Rec: 02/26/25 09:37 [id number]) OT Outpatient Adult Treatment Note Session Time Visit Start Date 03/02/25 Visit Start Time 13:45 Visit Stop Time 14:30 Visit Information Visit Number 12 of 24 Plan of Care Dates 12/31/24-03/25/25 Insurance no [place];no copay/deductible;max OT benefit: 12 total Information visits Setting Treatment Setting Outpatient Care Visit Type Note Type Treatment Note - Subjective Identification Type Name Identification Medical Record Reconciled With Observations Things are really going great, but I still can't hold my toddler for long at all. Patient/Caregiver Good Compliance with Home Exercise Program - Objective Short Term Goals Within 5 weeks: 1. Patient will demonstrate independence with a joint protection HEP including pain-free AROM and isometric strengthening for wrists and elbows to support ADL performance. [MET 02/24/25] 2. Patient will report at least a 1?2 point decrease in average pain during light functional activities (e.g., typing, holding a cup) as measured by numeric pain rating scale. [MET 01/27/25] 3. Patient will complete maintenance mgr strength assessment and demonstrate improved maintenance mgr strength by at least 3?5 lbs bilaterally without increase in pain. [PROGRESSING 02/24] 4. Patient will verbalize and demonstrate 3 ergonomic or activity modification strategies to reduce mechanical load to wrists/elbows during childcare tasks . [PROGRESSING 02/24/25] 5. Patient will tolerate at least 10 minutes of light functional use of BUEs without need to stop due to pain . [PROGRESSING 02/24/25] Nursing Home Goals Within 10 weeks: 1. Patient will demonstrate improved perception of functional independence as demonstrated by a QuickDASH score of </=25. [PROGRESSING 02/24/25] 2. Patient will report ability to complete essential childcare tasks (lifting/carrying child, dressing, meal prep) with pain =2/10. [PROGRESSING 02/24/25] 3. Per patient report, patient will complete a full day of light household and childcare activities without increased pain >1 point from baseline. [PROGRESSING 02/24/25] 4. Patient will demonstrate tolerance for progressive resistive strengthening of wrists and forearms without symptom exacerbation. [PROGRESSING 02/24/25] - Treatment 1 Descriptor Reviewed overall progress and remaining functional limitations, with primary deficit currently identified as reduced endurance when holding daughter for longer than 1?2 minutes. Introduced and instructed in new exercises to support postural and scapular endurance including rhomboid rows, segmental thoracic mobilization using a yoga block, wall-based cervical side bending stretch, and shoulder extension/anterior scapular tilt dissociation exercise (supplemental YouTube link provided for home review). Education provided on rhomboid self-massage and trigger point release techniques using a therapy ball for independent management of muscle tension. Patient demonstrated good return demonstration of all exercises with correct form and understanding of purpose and precautions. Manual Therapy Manual Therapy Manual interventions focused on bilateral trapezius and rhomboid musculature using contract?relax and gentle soft-tissue mobilization techniques to reduce residual tension and improve scapular mobility. Patient demonstrated excellent tissue response with palpable softening and no pain reported during intervention. Tuning fork vibration applied to rhomboid regions for neuromuscular relaxation and integration, with patient noting yawning and brief burping during treatment? consistent with parasympathetic activation and release. Patient reported improved sense of mobility and decreased tightness following manual work. - Assessment Patient Response to Good Treatment Rehabilitation Good Potential Impairments ADLs,Coordination/Dexterity,Flexibility,Functional Identified Activities,Motor Function,Pain,Weakness,Range of Motion ,Recreational Activities,Meaningful Activities, Stiffness,Work Capacity,Soft Tissue Mobility Progress Towards Good Progress Goals Assessment of Improving Overall Progress Assessment of Patient continues to demonstrate excellent progress Improvement with improved soft-tissue mobility, decreased muscle tension, and enhanced postural awareness. She tolerates manual and vibrational techniques well with positive neuromuscular release responses. Compliance with home programming is good, and patient reports satisfaction with progress to date. Ongoing skilled OT remains indicated to address remaining upper-extremity endurance limitations?particularly related to functional lifting and sustained holding?and to continue progression of postural strengthening and nervous system regulation techniques to promote lasting symptom control. Home Exercise tendon glides of hand, AROM (wrist flex/ext, ulnar/ Program radial deviation, supination/pronation), isometric wrist ext, scapular retraction/depression, chin tucks in supine, pec stretch, supine thoracic extension. Progressed 01/19/25 adding isometric wrist flex/BUE weight bearing within pain free range, added levator scapulae stretch and serratus punches 01/27/25. Progressed 03/02-added rhomboid rows, segmental thoracic mobilization using a yoga block, wall neck side bend, and the disassociation technique for shoulder ext/anterior scap tilts Reviewed with Goals,Progress Being Made,Home Exercise Program Patient/Caregiver Patient/Caregiver Good Understanding - Plan Therapy Continue with Current Program Recommendations Amount of Therapy 3-4 Months Recommended Frequency of Twice a Week Treatment Length of Session 45 Minutes Therapeutic Contents Active Range of Motion,Adaptive Equipment Education, Client Education,Functional Activities,Group Therapy, Home Exercise Program,Manual Therapy,Education,Self- Care,Stretching/Flexibility Activities,Therapeutic Activities,Therapeutic Exercises,Work Conditioning, Modalities Modalities As Needed Types of Modalities Ice Massage,Other Additional Types of MHP, Paraffin Modalities Other Referrals functional medicine,
--- NOTE | 2025-03-11 15:17 | OT.OP.TRT ---
Visit Care Team Role Provider Type Doctor MD Aretha Family Provider Non-Staff Primary Care Provider Specialty: Medical Address: Phone: Fax: Email: Jose Juan Harris DO Attending Provider Non-Staff Referring Provider Specialty: Orthopedic Surgery Address: [address] [place] [address], [id number] Email: Occupational Therapy Treatment Note OT Outpatient Treatment Note - Adult Start: 12/30/24 17:44 Freq: Status: Active Protocol: Document 03/11/25 13:45 (Rec: 03/11/25 11:49 [id number]) OT Outpatient Adult Treatment Note Session Time Visit Start Date 03/11/25 Visit Start Time 13:45 Visit Stop Time 14:30 Visit Information Visit Number [id number] Plan of Care Dates 12/31/24-03/25/25 Insurance no [place];no copay/deductible;max OT benefit: 12 total Information visits Setting Treatment Setting Outpatient Care Visit Type Note Type Treatment Note - Subjective Identification Type Name Identification Medical Record Reconciled With Observations I had food poisoning really bad yesterday so I have felt weak and tired all day from that Patient/Caregiver Good Compliance with Home Exercise Program - Objective Short Term Goals Within 5 weeks: 1. Patient will demonstrate independence with a joint protection HEP including pain-free AROM and isometric strengthening for wrists and elbows to support ADL performance. [MET 02/24/25] 2. Patient will report at least a 1?2 point decrease in average pain during light functional activities (e.g., typing, holding a cup) as measured by numeric pain rating scale. [MET 01/27/25] 3. Patient will complete financial accounting manager strength assessment and demonstrate improved financial accounting manager strength by at least 3?5 lbs bilaterally without increase in pain. [PROGRESSING 02/24] 4. Patient will verbalize and demonstrate 3 ergonomic or activity modification strategies to reduce mechanical load to wrists/elbows during childcare tasks . [PROGRESSING 02/24/25] 5. Patient will tolerate at least 10 minutes of light functional use of BUEs without need to stop due to pain . [PROGRESSING 02/24/25] Rehab Rn Goals Within 10 weeks: 1. Patient will demonstrate improved perception of functional independence as demonstrated by a QuickDASH score of </=25. [PROGRESSING 02/24/25] 2. Patient will report ability to complete essential childcare tasks (lifting/carrying child, dressing, meal prep) with pain =2/10. [PROGRESSING 02/24/25] 3. Per patient report, patient will complete a full day of light household and childcare activities without increased pain >1 point from baseline. [PROGRESSING 02/24/25] 4. Patient will demonstrate tolerance for progressive resistive strengthening of wrists and forearms without symptom exacerbation. [PROGRESSING 02/24/25] - Treatment 1 Descriptor Therapeutic activity focused on education and training for medical self-advocacy and care coordination. Reviewed provider types that may best support ongoing diagnostic clarification and management of suspected autoimmune and neuromusculoskeletal dysfunction, including family practice DOs, PM&R physicians, and integrative or functional medicine specialists. Discussed strategies for identifying in-network providers through insurance resources and online searches, including keywords and screening questions to determine provider fit and scope. Patient demonstrated good understanding of recommendations and verbalized confidence in initiating contact with potential providers for ongoing multidisciplinary management. Manual Therapy Manual Therapy Session included vibrational therapy utilizing 136.1 Hz fork to sternum for grounding and autonomic regulation , followed by 128 Hz weighted fork applied to thoracic paraspinals, rhomboids, upper trapezius, and levator scapulae bilaterally to promote myofascial release and neural down-regulation. Completed with unweighted 256 Hz clearing sweeps from cervical spine through upper extremities for sensory integration. Manual interventions included contract?relax and sustained soft-tissue mobilization of bilateral trapezius, rhomboids, and levator scapulae. Patient demonstrated good tissue response with improved mobility and decreased palpable tension post-intervention. Tolerated all techniques well without adverse response. - Assessment Patient Response to Good Treatment Rehabilitation Good Potential Impairments ADLs,Coordination/Dexterity,Flexibility,Functional Identified Activities,Motor Function,Pain,Weakness,Range of Motion ,Recreational Activities,Meaningful Activities, Stiffness,Work Capacity,Soft Tissue Mobility Progress Towards Good Progress Goals Assessment of Improving Overall Progress Assessment of Patient continues to show meaningful improvement in Improvement soft-tissue flexibility, postural mobility, and overall symptom management. She reports persistent but less frequent ?locking up? episodes and improved day-to-day tolerance for activity. Educational discussion supported patient empowerment in navigating referrals and identifying holistic medical providers to address ongoing systemic concerns. Manual and vibrational interventions were effective in reducing muscular tension and promoting relaxation. Continued skilled OT remains indicated to reinforce postural endurance, neuromuscular regulation, and functional activity tolerance while supporting interdisciplinary coordination for comprehensive management of her complex presentation. Home Exercise tendon glides of hand, AROM (wrist flex/ext, ulnar/ Program radial deviation, supination/pronation), isometric wrist ext, scapular retraction/depression, chin tucks in supine, pec stretch, supine thoracic extension. Progressed 01/19/25 adding isometric wrist flex/BUE weight bearing within pain free range, added levator scapulae stretch and serratus punches 01/27/25. Progressed 03/02-added rhomboid rows, segmental thoracic mobilization using a yoga block, wall neck side bend, and the disassociation technique for shoulder ext/anterior scap tilts Reviewed with Goals,Progress Being Made,Home Exercise Program Patient/Caregiver Patient/Caregiver Good Understanding - Plan Therapy Continue with Current Program Recommendations Amount of Therapy 3-4 Months Recommended Frequency of Twice a Week Treatment Length of Session 45 Minutes Therapeutic Contents Active Range of Motion,Adaptive Equipment Education, Client Education,Functional Activities,Group Therapy, Home Exercise Program,Manual Therapy,Education,Self- Care,Stretching/Flexibility Activities,Therapeutic Activities,Therapeutic Exercises,Work Conditioning, Modalities Modalities As Needed Types of Modalities Ice Massage,Other Additional Types of MHP, Paraffin Modalities Other Referrals functional medicine,
--- NOTE | 2025-03-25 15:50 | OT.OPPOC ---
Physical, Occupational & Speech Therapy At [facility] Yessi Akbar [id number] 2000 Visit Care Team Role Provider Type Doctor MD Aretha Family Provider Non-Staff Primary Care Provider Address: Phone: Fax: Jose Juan Harris DO Attending Provider Non-Staff Referring Provider Address: [address] [place] [address], [id number] UPDATED Occupational Therapy Plan of Care OT Outpatient Adult Evaluation Start: 12/30/24 17:44 Freq: Status: Active Protocol: Document 12/31/24 14:30 (Rec: 12/30/24 17:49 [id number]) General Information - Adult Visit Information Visit Number 1 of 24 Plan of Care Dates 12/31/24-03/25/25 Insurance no [place];no copay/deductible;max OT benefit: 12 total Information visits, including eval Session Time Visit Start Date 12/31/24 Visit Start Time 14:30 Visit Stop Time 15:30 Setting Treatment Setting Outpatient Care Visit Type Note Type Initial Evaluation Referral Referring Physician Dr. 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), and a benign-appearing lesion in the distal radial diaphysis Social Information Social History It pretty much hurts from my hands to my shoulders all the time Patient Questionnaires Quick Dash- Upper Extremity Quick Dash UE Score 68.2 Quick Dash UE 60 to 79% Impaired (Score 60-79) Impairment Quick Dash- Work and Sports Modules Quick Dash W&S Score W: 75 Quick Dash Work and 60 to 79% Impaired (Score 60-79) Sport Impairment Goals Objective Measurements Objective Cozen's (+ bilaterally), Wagoner (+ bilaterally), Measurements Lesia's (+ bilaterally), AROM/MMT WFL BUE, Treatment Treatment Patient engaged in initial evaluation including comprehensive history intake, review of recent left wrist MRI findings, and functional status assessment. Objective measurements obtained included bilateral upper extremity AROM for wrists, elbows, and forearms, palpation for tenderness and cyst location, special tests (positive Cozen?s, Mill?s, and Lesia?s bilaterally), and functional assessment using patient- reported outcomes. Education provided on joint protection strategies, concern for immune or inflammatory response with information on anti- inflammatory diets and nervous system regulation strategies, activity modification to reduce mechanical load to wrists and elbows, and gentle pain-free mobility exercises for wrists and forearms. Reviewed potential biomechanical contributors (cheese pancake roller and load mechanics, carrying strategies for child) and discussed role of systemic inflammation in symptom presentation. Initiated gentle, pain-free tendon glides and isometric wrist extension (elbows flexed) as tolerated. Short Term Goals Short Term Goals Within 5 weeks: 1. Patient will demonstrate independence with a joint protection HEP including pain-free AROM and isometric strengthening for wrists and elbows to support ADL performance. 2. Patient will report at least a 1?2 point decrease in average pain during light functional activities (e.g., typing, holding a cup) as measured by numeric pain rating scale. 3. Patient will complete cheese pancake roller strength assessment and demonstrate improved cheese pancake roller strength by at least 3?5 lbs bilaterally without increase in pain. 4. Patient will verbalize and demonstrate 3 ergonomic or activity modification strategies to reduce mechanical load to wrists/elbows during childcare tasks . 5. Patient will tolerate at least 10 minutes of light functional use of BUEs without need to stop due to pain . Lap Runner Goals Lap Runner Goals Within 10 weeks: 1. Patient will demonstrate improved perception of functional independence as demonstrated by a QuickDASH score of </=25. 2. Patient will report ability to complete essential childcare tasks (lifting/carrying child, dressing, meal prep) with pain =2/10. 3. Per patient report, patient will complete a full day of light household and childcare activities without increased pain >1 point from baseline. 4. Patient will demonstrate tolerance for progressive resistive strengthening of wrists and forearms without symptom exacerbation. Assessment/Plan Assessment Patient Response Good Rehabilitation Good Potential Impairments ADLs,Coordination/Dexterity,Flexibility,Functional Identified Activities,Motor Function,Pain,Range of Motion, Recreational Activities,Meaningful Activities,Stiffness ,Work Capacity,Soft Tissue Mobility Treatment Assessment 24-year-old female referred for right wrist sprain, left lateral epicondylitis, and ganglion cyst of the left wrist, with MRI confirming a 3.1 cm dorsal ganglion cyst at the scapholunate articulation, a high- grade central disc tear of the triangular fibrocartilage complex (TFCC), and a benign-appearing lesion in the distal radial diaphysis. She reports symptom onset approximately four months ago with no clear inciting injury, bilateral presentation of pain in wrists, forearms, and elbows radiating proximally into biceps and scapulae, and constant discomfort rated 4?5/10. Pain is aggravated by gripping, lifting, pushing, typing, writing, washing dishes, and caring for her [id number] child. She demonstrates positive provocative testing for lateral epicondylitis and De Quervain?s tenosynovitis bilaterally, with diffuse pain patterns inconsistent with isolated mechanical injury, suggesting a possible systemic inflammatory process. Patient has a rheumatology appointment scheduled for further evaluation of potential autoimmune etiology given symptom chronicity, distribution, and coexisting systemic complaints. At present, she is significantly limited in ADL and childcare activities for her age and prior functional level. She will benefit from skilled occupational therapy focused on pain management, joint protection, gentle mobility, activity modification, and gradual strengthening while awaiting further medical workup. Reviewed with Goals,Progress Being Made,Home Exercise Program Patient Patient Good Understanding Plan Length of treatment 12 (weeks) Plan of Care Start 12/31/24 Date Plan of Care End 03/25/25 Date Treatment Frequency Twice a Week Treatment Duration 45 Minutes Treatment Emphasis Exec. Creative Director/pinch strength testing, [email or web address], Next Session Therapeutic Contents Active Range of Motion,Adaptive Equipment Education, Client Education,Functional Activities,Group Therapy, Home Exercise Program,Manual Therapy,Education,Self- Care,Stretching/Flexibility Activities,Therapeutic Activities,Therapeutic Exercises,Work Conditioning, Modalities Modalities As Needed Types of Modalities Ice Massage,Other Additional Types of MHP, Paraffin Modalities Patient Instruction Home Exercise Program,Plan of Care,Questions/Concerns Patient Continue with Current Program Recommendations Suggested Referrals Other Other Suggested functional medicine, rheumatology (pending appt Referrals scheduled per pt) Functional Wrist/Hand Scan Hand Side Sensory Assessment Sensory Profile2 OT Outpatient Treatment Note - Adult Start: 12/30/24 17:44 Freq: Status: Active Protocol: Document 03/25/25 13:45 (Rec: 03/23/25 10:28 [id number]) OT Outpatient Adult Treatment Note Session Time Visit Start Date 03/25/25 Visit Start Time 13:45 Visit Stop Time 14:30 Visit Information Visit Number 14 of 24 Plan of Care Dates 12/31/24-03/25/25 Insurance no [place];no copay/deductible;max OT benefit: 12 total Information visits Setting Treatment Setting Outpatient Care Visit Type Note Type Progress Note General Information General Information Requesting POC extension for 03/25-04/03 - Subjective Identification Type Name Identification Medical Record Reconciled With Observations Oh it (re: shoulders) feels so much more loose after all that Patient/Caregiver Good Compliance with Home Exercise Program - Objective Short Term Goals Within 5 weeks: 1. Patient will demonstrate independence with a joint protection HEP including pain-free AROM and isometric strengthening for wrists and elbows to support ADL performance. [MET 02/24/25] 2. Patient will report at least a 1?2 point decrease in average pain during light functional activities (e.g., typing, holding a cup) as measured by numeric pain rating scale. [MET 01/27/25] 3. Patient will complete cheese pancake roller strength assessment and demonstrate improved cheese pancake roller strength by at least 3?5 lbs bilaterally without increase in pain. [PROGRESSING 02/24] 4. Patient will verbalize and demonstrate 3 ergonomic or activity modification strategies to reduce mechanical load to wrists/elbows during childcare tasks . [PROGRESSING 02/24/25] 5. Patient will tolerate at least 10 minutes of light functional use of BUEs without need to stop due to pain . [PROGRESSING 02/24/25] Lap Runner Goals Within 10 weeks: 1. Patient will demonstrate improved perception of functional independence as demonstrated by a QuickDASH score of </=25. [PROGRESSING 02/24/25] 2. Patient will report ability to complete essential childcare tasks (lifting/carrying child, dressing, meal prep) with pain =2/10. [PROGRESSING 02/24/25] 3. Per patient report, patient will complete a full day of light household and childcare activities without increased pain >1 point from baseline. [PROGRESSING 02/24/25] 4. Patient will demonstrate tolerance for progressive resistive strengthening of wrists and forearms without symptom exacerbation. [PROGRESSING 02/24/25] - Exercises 1 Descriptor Therapeutic exercise and activity focused on progression to light resistance band strengthening for upper body postural endurance and neuromuscular re- education. Patient completed 2 sets of 10 repetitions of each exercise, including scapular retraction with external rotation, serratus punch, midline row, shoulder extension, and wrist extension/radial deviation. Education provided throughout on correct form, breathing, pacing, and strategies to modify difficulty or avoid pain. Patient was additionally instructed in exploring shoulder girdle and thoracic extension mobility within each movement to identify areas of tension, release, or restriction and adjust positioning accordingly. Demonstrated good effort and body awareness with maximal verbal and visual cues for proper technique and pacing. No pain reported during participation. Patient noted subjective sense of increased mobility and improved active range of motion of bilateral shoulders following completion of exercises. Side Both Visual Cues Max Cues Verbal Cues Max Cues Tolerance Good - Assessment Patient Response to Good Treatment Rehabilitation Good Potential Impairments ADLs,Coordination/Dexterity,Flexibility,Functional Identified Activities,Motor Function,Pain,Weakness,Range of Motion ,Recreational Activities,Meaningful Activities, Stiffness,Work Capacity,Soft Tissue Mobility Progress Towards Good Progress Goals Assessment of Improving Overall Progress Assessment of Patient tolerated progression to resisted therapeutic Improvement exercise well with no adverse response, demonstrating improved endurance and dynamic postural control throughout the session. Notable positive subjective and observed improvement in shoulder mobility following completion of strengthening sequence. Continued gains in neuromuscular coordination and tolerance for upper- extremity functional loading were evident. Patient remains highly engaged and demonstrates growing ability to self-assess and adjust movement patterns for comfort and efficiency. Ongoing skilled OT remains indicated to advance scapular and shoulder stability, build endurance for childcare and daily tasks, and further integrate strengthening with postural and soft- tissue mobility interventions. Home Exercise tendon glides of hand, AROM (wrist flex/ext, ulnar/ Program radial deviation, supination/pronation), isometric wrist ext, scapular retraction/depression, chin tucks in supine, pec stretch, supine thoracic extension. Progressed 01/19/25 adding isometric wrist flex/BUE weight bearing within pain free range, added levator scapulae stretch and serratus punches 01/27/25. Progressed 03/02-added rhomboid rows, segmental thoracic mobilization using a yoga block, wall neck side bend, and the disassociation technique for shoulder ext/anterior scap tilts. Progressed 03/25: Resisted scapular retraction with ER, Supine serratus punch with band, continue rhomboid rows with band, shoulder extension with band, wrist extension/radial deviation with resisitance Reviewed with Goals,Progress Being Made,Home Exercise Program Patient/Caregiver Patient/Caregiver Good Understanding - Plan Therapy Continue with Current Program Recommendations Amount of Therapy 3-4 Months Recommended Frequency of Twice a Week Treatment Length of Session 45 Minutes Therapeutic Contents Active Range of Motion,Adaptive Equipment Education, Client Education,Functional Activities,Group Therapy, Home Exercise Program,Manual Therapy,Education,Self- Care,Stretching/Flexibility Activities,Therapeutic Activities,Therapeutic Exercises,Work Conditioning, Modalities Modalities As Needed Types of Modalities Ice Massage,Other Additional Types of MHP, Paraffin Modalities Other Referrals functional medicine, Electronically Signed by: Isabella Haro OT 03/25/25 [id number] If you are in agreement with this Plan of Care, please return a signed and dated copy. I have reviewed this Plan of Care and certify that the skilled therapy services above are required to meet the patient?s needs. Physician Signature Date Printed Name and Credentials Clinical Instructor Signature Printed Name and Credentials
--- NOTE | 2025-04-01 16:11 | OT.OP.DC ---
Visit Care Team Role Provider Type Doctor MD Aretha Family Provider Non-Staff Primary Care Provider Address: Phone: Fax: Email: Jose Juan Harris DO Attending Provider Non-Staff Referring Provider Address: [address] [place] [address], [id number] Email: OT Outpatient OT Outpatient Adult Evaluation Start: 12/30/24 17:44 Freq: Status: Active Protocol: Document 12/31/24 14:30 (Rec: 12/30/24 17:49 [id number]) General Information - Adult Visit Information Visit Number 1 of 24 Plan of Care Dates 12/31/24-03/25/25 Insurance no [place];no copay/deductible;max OT benefit: 12 total Information visits, including eval Session Time Visit Start Date 12/31/24 Visit Start Time 14:30 Visit Stop Time 15:30 Setting Treatment Setting Outpatient Care Visit Type Note Type Initial Evaluation Referral Referring Physician Dr. 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), and a benign-appearing lesion in the distal radial diaphysis Social Information Social History It pretty much hurts from my hands to my shoulders all the time Patient Questionnaires Quick Dash- Upper Extremity Quick Dash UE Score 68.2 Quick Dash UE 60 to 79% Impaired (Score 60-79) Impairment Quick Dash- Work and Sports Modules Quick Dash W&S Score W: 75 Quick Dash Work and 60 to 79% Impaired (Score 60-79) Sport Impairment Goals Objective Measurements Objective Cozen's (+ bilaterally), Wagoner (+ bilaterally), Measurements Lesia's (+ bilaterally), AROM/MMT WFL BUE, Treatment Treatment Patient engaged in initial evaluation including comprehensive history intake, review of recent left wrist MRI findings, and functional status assessment. Objective measurements obtained included bilateral upper extremity AROM for wrists, elbows, and forearms, palpation for tenderness and cyst location, special tests (positive Cozen?s, Mill?s, and Lesia?s bilaterally), and functional assessment using patient- reported outcomes. Education provided on joint protection strategies, concern for immune or inflammatory response with information on anti- inflammatory diets and nervous system regulation strategies, activity modification to reduce mechanical load to wrists and elbows, and gentle pain-free mobility exercises for wrists and forearms. Reviewed potential biomechanical contributors (winchman/crane operator and load mechanics, carrying strategies for child) and discussed role of systemic inflammation in symptom presentation. Initiated gentle, pain-free tendon glides and isometric wrist extension (elbows flexed) as tolerated. Short Term Goals Short Term Goals Within 5 weeks: 1. Patient will demonstrate independence with a joint protection HEP including pain-free AROM and isometric strengthening for wrists and elbows to support ADL performance. 2. Patient will report at least a 1?2 point decrease in average pain during light functional activities (e.g., typing, holding a cup) as measured by numeric pain rating scale. 3. Patient will complete winchman/crane operator strength assessment and demonstrate improved winchman/crane operator strength by at least 3?5 lbs bilaterally without increase in pain. 4. Patient will verbalize and demonstrate 3 ergonomic or activity modification strategies to reduce mechanical load to wrists/elbows during childcare tasks . 5. Patient will tolerate at least 10 minutes of light functional use of BUEs without need to stop due to pain . Care Home Goals Visitor Services Associate Goals Within 10 weeks: 1. Patient will demonstrate improved perception of functional independence as demonstrated by a QuickDASH score of </=25. 2. Patient will report ability to complete essential childcare tasks (lifting/carrying child, dressing, meal prep) with pain =2/10. 3. Per patient report, patient will complete a full day of light household and childcare activities without increased pain >1 point from baseline. 4. Patient will demonstrate tolerance for progressive resistive strengthening of wrists and forearms without symptom exacerbation. Assessment/Plan Assessment Patient Response Good Rehabilitation Good Potential Impairments ADLs,Coordination/Dexterity,Flexibility,Functional Identified Activities,Motor Function,Pain,Range of Motion, Recreational Activities,Meaningful Activities,Stiffness ,Work Capacity,Soft Tissue Mobility Treatment Assessment 24-year-old female referred for right wrist sprain, left lateral epicondylitis, and ganglion cyst of the left wrist, with MRI confirming a 3.1 cm dorsal ganglion cyst at the scapholunate articulation, a high- grade central disc tear of the triangular fibrocartilage complex (TFCC), and a benign-appearing lesion in the distal radial diaphysis. She reports symptom onset approximately four months ago with no clear inciting injury, bilateral presentation of pain in wrists, forearms, and elbows radiating proximally into biceps and scapulae, and constant discomfort rated 4?5/10. Pain is aggravated by gripping, lifting, pushing, typing, writing, washing dishes, and caring for her 49-kepsa-trs child. She demonstrates positive provocative testing for lateral epicondylitis and De Quervain?s tenosynovitis bilaterally, with diffuse pain patterns inconsistent with isolated mechanical injury, suggesting a possible systemic inflammatory process. Patient has a rheumatology appointment scheduled for further evaluation of potential autoimmune etiology given symptom chronicity, distribution, and coexisting systemic complaints. At present, she is significantly limited in ADL and childcare activities for her age and prior functional level. She will benefit from skilled occupational therapy focused on pain management, joint protection, gentle mobility, activity modification, and gradual strengthening while awaiting further medical workup. Reviewed with Goals,Progress Being Made,Home Exercise Program Patient Patient Good Understanding Plan Length of treatment 12 (weeks) Plan of Care Start 12/31/24 Date Plan of Care End 03/25/25 Date Treatment Frequency Twice a Week Treatment Duration 45 Minutes Treatment Emphasis Derrick Boat Runner/pinch strength testing, kapandji, Next Session Therapeutic Contents Active Range of Motion,Adaptive Equipment Education, Client Education,Functional Activities,Group Therapy, Home Exercise Program,Manual Therapy,Education,Self- Care,Stretching/Flexibility Activities,Therapeutic Activities,Therapeutic Exercises,Work Conditioning, Modalities Modalities As Needed Types of Modalities Ice Massage,Other Additional Types of MHP, Paraffin Modalities Patient Instruction Home Exercise Program,Plan of Care,Questions/Concerns Patient Continue with Current Program Recommendations Suggested Referrals Other Other Suggested functional medicine, rheumatology (pending appt Referrals scheduled per pt) Functional Wrist/Hand Scan Hand Side Sensory Assessment Sensory Profile2 OT Outpatient Treatment Note - Adult Start: 12/30/24 17:44 Freq: Status: Active Protocol: Document 04/01/25 13:45 (Rec: 03/31/25 12:32 [id number]) OT Outpatient Adult Treatment Note Session Time Visit Start Date 04/01/25 Visit Start Time 13:45 Visit Stop Time 14:30 Visit Information Visit Number 15 of 24 Plan of Care Dates 03/25/2025-04/03/2025 Insurance no PA;no copay/deductible;max OT benefit: 12 total Information visits Setting Treatment Setting Outpatient Care Visit Type Note Type Discharge Summary - Subjective Identification Type Name Identification Medical Record Reconciled With Observations I can't believe how much better I have been feeling! Patient/Caregiver Good Compliance with Home Exercise Program - Objective Objective QUICK DASH scores: 36.4, Work: 25, [on eval 12/31: 68.2; Measurements Work: 75,] Cozens(-)/Wagoner (-)/Rula's (-) 01/05 measurements: Right hand: Derrick Boat Runner: (63/69/60lb) - Average 64lb 3 Jaw maxwell pinch - 16/13.5/15 Average 14.8lb Lateral pinch - 14.5/14.5/14.5- 14.5lb Left hand: Derrick Boat Runner: (69/50/66lb) - Average 61.7lb 3 Jaw maxwell pinch - 12/12.5/11 - 11.8 Lateral pinch - 12/13.5/15 - Average 13.5 Short Term Goals Within 5 weeks: 1. Patient will demonstrate independence with a joint protection HEP including pain-free AROM and isometric strengthening for wrists and elbows to support ADL performance. [MET 02/24/25] 2. Patient will report at least a 1?2 point decrease in average pain during light functional activities (e.g., typing, holding a cup) as measured by numeric pain rating scale. [MET 01/27/25] 3. Patient will complete winchman/crane operator strength assessment and demonstrate improved winchman/crane operator strength by at least 3?5 lbs bilaterally without increase in pain. [MET 04/01/25] 4. Patient will verbalize and demonstrate 3 ergonomic or activity modification strategies to reduce mechanical load to wrists/elbows during childcare tasks . [MET 04/01/25] 5. Patient will tolerate at least 10 minutes of light functional use of BUEs without need to stop due to pain . [MET 04/01/25] Visitor Services Associate Goals Within 10 weeks: 1. Patient will demonstrate improved perception of functional independence as demonstrated by a QuickDASH score of </=25. [NOT MET 04/01/25] 2. Patient will report ability to complete essential childcare tasks (lifting/carrying child, dressing, meal prep) with pain =2/10. [NOT MET 04/01/25] 3. Per patient report, patient will complete a full day of light household and childcare activities without increased pain >1 point from baseline. [MET 04/01/25] 4. Patient will demonstrate tolerance for progressive resistive strengthening of wrists and forearms without symptom exacerbation. [MET 04/01/25] - Treatment 1 Descriptor Patient was re-tested today to assess progress toward goals and readiness for discharge. Objective measures indicated significant improvement in functional strength and daily tolerance for activity. Current QuickDASH score is 36.4 (previously 68.2 on 12/31) with work module score reduced to 25 (previously 75). Provocative testing for lateral epicondylitis and De Quervain?s tenosynovitis (Cozens, Wagoner, Lesia?s) are now negative bilaterally. Derrick Boat Runner and pinch strength have improved substantially since 01/05, with right hand winchman/crane operator increasing from an average of 25 lb to 64 lb and left hand winchman/crane operator from 14 lb to 61.7 lb, with comparable gains in three-jaw maxwell and lateral pinch strength. Pain during functional tasks is now reported as 3/10 on average, peaking briefly to 5?6/10 only a few times per week versus several times daily at evaluation. Education was provided on continued home management, including monitoring for symptom recurrence, gradual progression of resistance training, use of ergonomic strategies, and pacing to avoid overuse. Patient was instructed to continue home strengthening and stretching program, maintain joint protection principles, and contact her physician or therapy clinic for a new referral if symptoms return or worsen. - Assessment Patient Response to Good Treatment Rehabilitation Good Potential Impairments ADLs,Coordination/Dexterity,Flexibility,Functional Identified Activities,Motor Function,Pain,Weakness,Range of Motion ,Recreational Activities,Meaningful Activities, Stiffness,Work Capacity,Soft Tissue Mobility Progress Towards Good Progress,Appropriate for Discharge Goals Assessment of Improving Overall Progress Assessment of The patient is a 24-year-old female initially evaluated Improvement on 12/31/24 for bilateral wrist pain associated with a right wrist sprain, left lateral epicondylitis, and recurrent dorsal wrist ganglion cyst. At the time of evaluation, she presented with diffuse upper-extremity pain radiating from wrists to elbows, positive Cozens, Wagoner, and Lesia?s tests bilaterally, significant winchman/crane operator and pinch weakness, and functional limitations affecting childcare, typing, lifting, and self-care. Treatment interventions during this episode of care focused on pain management, progressive strengthening, postural re-education, and activity modification within a western medicine framework. Interventions included joint protection education, ergonomic training, graded therapeutic exercise emphasizing pain-free AROM and isometric strengthening of the wrists and elbows, progressive resistive exercises using light resistance bands, soft-tissue mobilization of upper-quarter musculature, and instruction in home exercise and self- management strategies. Education also addressed body mechanics, pacing, and functional task modification to reduce mechanical load during childcare and household activities. Throughout the plan of care, the patient demonstrated excellent participation and consistent progress. She achieved full resolution of lateral epicondylitis and De Quervain?s symptoms, normalization of winchman/crane operator and pinch strength bilaterally, and meaningful improvement in perceived functional independence as reflected by reduced QuickDASH scores. Pain is now minimal and primarily limited to postural shoulder tension rather than joint-related discomfort. The patient has met or exceeded nearly all established short- and long-term goals and reports confidence in independently maintaining her progress. At this time, the patient requests discharge due to therapist availability and scheduling conflicts. She has been educated on continued self-management, understands how to monitor and modify activity as needed, and is aware that a new referral may be requested should symptoms recur or worsen. Home Exercise tendon glides of hand, AROM (wrist flex/ext, ulnar/ Program radial deviation, supination/pronation), isometric wrist ext, scapular retraction/depression, chin tucks in supine, pec stretch, supine thoracic extension. Progressed 01/19/25 adding isometric wrist flex/BUE weight bearing within pain free range, added levator scapulae stretch and serratus punches 01/27/25. Progressed 03/02-added rhomboid rows, segmental thoracic mobilization using a yoga block, wall neck side bend, and the disassociation technique for shoulder ext/anterior scap tilts. Progressed 03/25: Resisted scapular retraction with ER, Supine serratus punch with band, continue rhomboid rows with band, shoulder extension with band, wrist extension/radial deviation with resisitance Reviewed with Goals,Progress Being Made,Home Exercise Program Patient/Caregiver Patient/Caregiver Good Understanding - Plan Therapy Discharge to Home Exercise Program Recommendations Amount of Therapy No Further Therapy Recommended Frequency of No Further Therapy Treatment
== END 2025-04-05 10:47 | disposition home or self-care (01) ==
LOC: OT 13:45
PROVIDERS: Referring Provider Orthopaedic Surgery; Visit Provider Orthopaedic Surgery
DX: M67.432 Ganglion, left wrist (principal); M77.12 Lateral epicondylitis, left elbow; S63.501D Unspecified sprain of right wrist, subsequent encounter
CPT/HCPCS: 97110; 97140; 97165; 97530

== ENCOUNTER → 2025-05-15 09:24 | Outpatient (CLI) | payer OTHER, SELFPAY ==
[2025-05-15 10:31] LABS: Influenza A - CEPHEID Flu A NEGATIVE (NEGATIVE); Influenza B - CEPHEID Flu B NEGATIVE (NEGATIVE)
[2025-05-15 10:34] LABS: COVID-19 CEPHEID 4-PLEX PCR Negative (Negative)
== END ==
PROVIDERS: Visit Provider Chiropractor
DX: J02.9 Acute pharyngitis, unspecified (principal); R05.1 Acute cough
CPT/HCPCS: 87070; 87637

== ENCOUNTER 2025-05-19 18:55 | Emergency (ER) | payer OTHER, SELFPAY ==
--- OUTSIDE RECORDS SUMMARY | 2025-05-19 18:58 | XMS_ITS | Clinical Summary ---
Author Organization [facility] Address [address] [place] [address] Care Team Providers Care Cougar Hunter Name Role Phone Modesto Draper PA-C Primary Care Provider [phone] Annette Smith MD Unavailable [phone] Allergies No known active allergies Medications metoclopramide (REGLAN) 10 MG Tab Take 0.5-1 Tablets by mouth before meals and at bedtime. 10 Tablet 3 Active Additional Information Patient not taking.Reported on 07/19/2023 ferrous sulfate 325 (65 Fe) MG Tab Take 1 Tablet by mouth once daily. 2 Active ondansetron (ZOFRAN ODT) 4 MG Tablet Dispersible Dissolve 1 Tablet in mouth every 8 hours as needed for nausea/vomiting . Active Vit-Fe Fumarate-FA ( VITAMIN OR) Take 1 Tablet by mouth once daily. Active ascorbic acid-Vitamin C 500 MG Chew Tab Chew and swallow 1 Tablet by mouth once daily. Active magnesium gluconate 250 MG Tab Take 1 Tablet by mouth once daily. Active docusate sodium (COLACE) 100 MG Caps Take 1 Capsule by mouth once daily. Active Active Problems Problem Noted Date Diagnosed Date Vaginal pain 08/05/2023 Assessment & Plan (08/05/2023 3:58 PM PDT): With normal cervical exam UA today - will follow up pending results 1+ leuks, +blood - send for microscopy. Reassurance provided today regarding trauma and and aftereffects. Hemorrhoid 08/05/2023 Assessment & Plan (08/05/2023 4:00 PM PDT): Continue with stool softener Increase water intake, 2L daily - Increase daily fluid intake, 1.5-2L daily - Start Metamucil supplement, need 20-30g fiber daily - Come back if you get oozing, itching, fecal incontinence. - Follow up as needed state 07/19/2023 Assessment & Plan (09/04/2023 2:18 PM PDT): Pain and bleeding controlled Advised nothing per vagina until after 6 weeks post Plans to use barrier for contraception. Advised of healthy 18 month interpregnancy interval EPDS score: 10 Monitor for depression symptoms. discussed joining support groups, counseling and pharmacotherapy Depression: High Risk (09/04/2023) [place] Depression Scale Last EPDS Total Score: 10 Last EPDS Self Harm Result: Never Assessment & Plan (07/19/2023 2:25 PM PST): has not resumed sexual activity. Advised nothing per vagina until after 6 weeks post Plans to use barrier for contraception. Advised of healthy 18 month interpregnancy interval Mood is good. Pain and bleeding controlled. Follow up in 5 weeks Major depression, chronic 07/08/2023 Generalized anxiety disorder 07/08/2023 Abnormal Pap smear of cervix 01/12/2023 Overview (09/02/2023): 11/22/2022 LSIL- repeat in one year- per [place] historical record 11/22/2022 LSIL- repeat in one year- per [place] historical record Resolved Problems Problem Noted Date Diagnosed Date Resolved Date Vaginal delivery 07/10/2023 09/02/2023 Supervision of normal pregna ncy in third trimester 07/08/2023 07/18/2023 Ramy Hick's contraction 06/20/2023 0 09/02/2023 Borderline anemia 04/04/2023 09/02/2023 Overview (09/02/2023): 04/04/23 Hct = 33.5 04/04/23 Hct = 33.5 Hyperemesis 12/30/2022 09/02/2023 Ruptured right tubal ectopic causing hemoperitoneum 01/24/2022 07/08/2023 Nummular eczema 03/29/2009 07/08/2023 Tinea cruris 02/16/2009 07/08/2023 Immunizations Immunization Administration Dates Next Due DTAP (DAPTACEL) 5 PERTUSSIS ANTIGENS 03/2005,11/01/2003,03/26/2000,08/14 HEPATITIS A (Adult) 02/16/2009,10/20/2007 HEPATITIS B ADULT (ENGERIX-B , RECOMBIVAX HB) 01/27/2004,03/26/2000,1999 HIB-PRP-T (ActHib,Hiberix) 05/21/2003,03/26/2000 ,1999 HUMAN PAPILLOMAVIRUS (HPV-4) 12/16/2012,08/13/19 13,01/09/2011 INFLUENZA IM NON-PF IIV3 02/16/2009 INFLUENZA IM PF IIV3 06/30/2013 IPV (POLIO) 11/01/2003,03/26/2000,1999 MENINGOCOCCAL MCV4P (MENACTRA) 06/30/2013 MMR 11/29/2003,11/01/2003 Tdap (Adacel, Boostrix) 01/09/2011 VARICELLA VACCINE (VARIVAX) 10/20/2007, 4 Family History Medical History Relation Name Comments Heart attack Paternal Grandfather Relation Name Status Comments Paternal Grandfather Social History Tobacco Use Types Packs/Day Years Used Date Smoking Tobacco: Never Smokeless Tobacco: Never Tobacco Cessation:Counseling Given: Not Answered Comments:vape Alcohol Use Standard Drinks/Week Comments Not Currently 0 (1 standard drink = 0.6 oz pur e alcohol) maybe one per month PHQ-2 Answer Date Recorded [place] Depressi on Scale Total [Note: If the answer to the self-harm question is anything other than never, complete the CSSRS form in the Forms Toolbox for Ambulatory or C-SSRS Screener (Since Last Contact) flowsheet for Inpatient.] 10 09/04/2023 [place] Depression Scale Answer Date Recorded [place] Depression Scale Total 10 09/04/2023 The thought of harming myself has occurred to me . Never 09/04/2023 Comments No Sex and Gender Information Value Date Recorded Sex Assigned at Female 12/23/2022 5:01 PM PDT Legal Sex Female 1:59 PM PDT Gender Identity Female 12/23/2022 5:01 PM PDT Sexual Orientation Not on file Occupation Industry Job Start Date Job End Date Unemployed Not on file Not on file Not on file Last Filed Vital Signs Vital Sign Reading Time Taken Comments Blood Pressure 102/60 09/04/2023 1:58 PM PDT Pulse 68 09/04/2023 1:58 PM PDT Temperature 36.5 C (97.7 F) 08/05/2023 2:44 PM PDT Respiratory Rate 16 12/23/2022 4:11 PM PDT Oxygen Saturation 98% 09/04/2023 1:58 PM PDT Inhaled Oxygen Concentration - - Weight 63.5 kg (140 lb) 09/04/2023 1:58 PM PDT Height 153 cm (5' 0.25) 09/04/2023 1:58 PM PDT Body Mass Index 27.12 09/04/2023 1:58 PM PDT Plan of Treatment Upcoming Encounters Date Type Department Care Team (Late st Contact Info) Description 07/26/2025 1:00 PM PDT Office Visit [facility] [address] [place] [phone] Mary Boss DDS [address] [place] [address] NPX 07/27/2025 1:00 PM PDT Office Visit [facility] [address] [place] [phone] Mary Boss DDS [address] [place] [address] ADPX Health Maintenance Due Date Last Done Comments SCRN: FOR HIV USPSTF ROUTINE (15-65 YEARS) 2014 Pap Smear 2020 Depression Screening (Annual Follow-up for People with Depression) 09/03/2024 09/04/2023 IMM: INFLUENZA (AGE > 6 MONTHS) (#1) 01/18/2025 06/30/2013, 02/16/2009 IMM: DTAP/TDAP/TD (7 - Td or Tdap) 04/16/2033 04/16/2023, 01/09/2011, 02/27/2005, Additional history exists IMM: RSV ( patients and Patients AGE > 60 YEARS OLD) (1 - 1-dose 75+ series) 2074 IMM: HEPATITIS B Completed 01/27/2004, 11/1999, 1999 IMM: HEPATITIS A Completed 02/16/2009, 10/20/2007 IMM: HPV Completed 12/16/2012, 07/19, 01/09/2011 IMM: MENINGOCOCCAL ACWY Aged Out 06/30/2013 No l onger eligible based on patient's age to complete this topic [facility] SCRN: HIV-UNIVERSAL SCRN Completed 11/22/2022 SCRN: FOR HEPATITIS C ROUTINE (18-79 Years) Completed 04/03/2023 IMM: Pneumococcal Combined Aged Out N o longer eligible based on patient's age to complete this topic IMM: RSV (AGE < 20 MONTHS) Aged Out N o longer eligible based on patient's age to complete this topic Insurance [facility] [employer] [facility] Care Teams Cougar Hunter Relationship Specialty Start Date End Date Modesto Draper PA-C [facility] [address] [place] [address] PCP - General Physician V Belt Finisher 07/18/23 Annette Smith MD [address] [place] [id number] Family Medicine/Obstetrics 07/18/23
[2025-05-19 19:10] VITALS: BP 110/66; PULSE 121; RESP 28; TEMP 36.8; O2SAT 98; BMI 26.9
--- NOTE | 2025-05-19 19:15 | DI.RAD.S_ITS ---
PROCEDURE: XR CHEST 2V INDICATIONS: cough TECHNIQUE: 2 views of the chest were acquired. COMPARISON: None. FINDINGS: Surgical changes and devices: None. Lungs and pleura: Lungs are clear. No pleural effusions or pneumothorax. Mediastinum: Mediastinal contours are normal. Heart size is normal. Bones and chest wall: No suspicious bony abnormalities. Soft tissues appear unremarkable. IMPRESSION: No acute cardiopulmonary abnormality is seen. Dictated by: Lizzie Monae M.D. on 05/19/2025 at 19:47 Approved by: Lizzie Monae M.D. on 05/19/2025 at 19:48
[2025-05-19 19:22] VITALS: PULSE 110; RESP 243; O2SAT 99
[2025-05-19] MEDS: ALBUTEROL/IPRATROPIUM 3 ML AMPUL INH (19:22)
--- NOTE | 2025-05-19 19:43 | ED.GENADULT ---
HPI - General Adult General Chief complaint: Upper Respiratory Symptoms Stated complaint: SOB chest px , headache Time Seen by Provider: 05/19/25 18:58 Source: patient Mode of arrival: Ambulatory History of Present Illness HPI narrative: 24-year-old female complains of 5 days duration of dry cough, increasing coughing spells, has 2-year-old that she has been , is willing to stop for medications to use if needed. Has right shoulder blade area discomfort, worse with movements, no injury or trauma or new activities besides URI symptoms above. No current antibiotics. Related Data Previous Rx's ?Medication ?Instructions ?Recorded benzonatate 100 mg capsule 100 mg PO BID-TID PRN cough #14 05/19/25 caps methocarbamol 500 mg tablet 500 mg PO TID 7 days #21 tabs 05/19/25 Allergies Allergy/AdvReac Type Severity Reaction Status Date / Time No Known Drug Allergies Allergy Unverified 05/19/25 19:10 Patient History tobacco type: vaping Exam Narrative Exam Narrative: GENERAL: Well-developed patient, in mild distress. HEAD: Atraumatic. Normocephalic. EYES: Pupils equal round and reactive. Extraocular motions intact. No scleral icterus. No injection or drainage. ENT: Nose without bleeding, purulent drainage. Throat without erythema, tonsillar hypertrophy or exudate. Airway patent. NECK: Trachea midline. Non tender CARDIOVASCULAR: Regular rate and rhythm without murmurs, gallops, or rubs. RESPIRATORY: Clear to auscultation. Breath sounds equal bilaterally. No wheezes, rales, or rhonchi. GASTROINTESTINAL: Abdomen soft, non-tender, nondistended. EXTREMITIES: Some tenderness along right superior rhomboid, no obvious skin changes, no crepitance or induration. BACK: Nontender without deformity or crepitance. No flank tenderness. NEURO: AOx3. Motor functions grossly nonfocal. SKIN: No rash or erythema of visible areas Initial Vital Signs Initial Vital Signs: Vital Signs Temperature 98.3 F 05/19/25 19:10 Pulse Rate 121 H 05/19/25 19:10 Respiratory Rate 28 H 05/19/25 19:10 Blood Pressure 110/66 05/19/25 19:10 Pulse Oximetry 98 05/19/25 19:10 Oxygen Delivery Method Room Air 05/19/25 19:10 Course Orders Ordered: Discontinued Medications Albuterol/Ipratropium (Albuterol/Ipratropium 3 Ml Ampul) 3 ml INH NOW ONE Stop: 05/19/25 19:16 Last Admin: 05/19/25 19:22 Dose: 3 ml Documented By: DANUTA Benzonatate (Benzonatate 100 Mg Capsule) 100 mg PO NOW ONE Stop: 05/19/25 19:52 Last Admin: 05/19/25 20:19 Dose: 100 mg Documented By: TERRY Methocarbamol (Methocarbamol 500 Mg Tablet) 500 mg PO NOW ONE Stop: 05/19/25 19:52 Last Admin: 05/19/25 20:19 Dose: 500 mg Documented By: TERRY Vital Signs Vital signs: Vital Signs - 8 hr 05/19/25 19:10 05/19/25 19:22 Temperature 98.3 F Pulse Rate 121 H 110 H Respiratory Rate 28 H 243 H Blood Pressure 110/66 Pulse Oximetry 98 99 Oxygen Delivery Method Room Air Room Air Fraction of Inspired Oxygen 21 Medical Decision Making Lab Data Lab results reviewed: Yes I reviewed the patient's lab results. Lab results narrative: COVID influenza RSV negative Labs: Lab Results 05/19/25 Range/Units 19:18 SARS-CoV-2 (PCR) Negative (Negative) Influenza A (RT-PCR) Flu a negative (NEGATIVE) Influenza B (RT-PCR) Flu b negative (NEGATIVE) RSV (PCR) Negative (Negative) Imaging Data Chest x-ray: Radiologist's Impression: [place] [address] XRay Report Signed Patient: Yessi Akbar MR#: [id number] : 2000 Acct:[id number] Age/Sex: 24 / F Date of Service: 05/19/25 Loc: ED Accession Number: [id number] Procedure: XR chest 2V Ordering Provider: Agapito Whyte MD PROCEDURE: XR CHEST 2V INDICATIONS: cough TECHNIQUE: 2 views of the chest were acquired. COMPARISON: None. FINDINGS: Surgical changes and devices: None. Lungs and pleura: Lungs are clear. No pleural effusions or pneumothorax. Mediastinum: Mediastinal contours are normal. Heart size is normal. Bones and chest wall: No suspicious bony abnormalities. Soft tissues appear unremarkable. IMPRESSION: No acute cardiopulmonary abnormality is seen. Dictated by: Lizzie Monae M.D. on 05/19/2025 at 19:47 Approved by: Lizzie Monae M.D. on 05/19/2025 at 19:48 [facility] Narrative Medical decision making narrative: 24-year-old female with 5 days duration cough, acute coughing spells with increased shortness of breath, right scapular area discomfort. Chest x-ray shows no acute changes. COVID influenza RSV negative. Clinical exam has tenderness superior right rhomboid, consistent with muscular strain. Patient but willing to take medications and stopped . Trial of [id number] Tylenol and or Motrin as needed for fever or pain control. Methocarbamol 1st dose given, prescription sent to requested pharmacy. Tessalon Perle oral dose given, prescription sent to requested pharmacy. Recheck advised with PCP Saturday if symptoms are persisting. Return precautions discussed. Discharged home with family. Discharge Plan Departure Patient Disposition: Home Clinical Impression: Acute upper respiratory infection, Strain of right rhomboid muscle Instructions: DI for Viral Upper Respiratory Infection -- Adult, DI for Muscle Strain Activity Restrictions/Additional Instructions: Recent coughing, right scapular discomfort, tenderness along the right rhomboid muscle, consistent with right rhomboid acute muscle strain. Chest x-ray showed no obvious pneumonia or lung collapse or acute changes. Trial of Tessalon to help prevent cough, dose given, prescription sent to your requested pharmacy. Trial of muscle relaxant methocarbamol/Robaxin, dose given, prescription [place] requested pharmacy. Take Tylenol and or Motrin as needed for fever control if needed. Consider stopping while taking the above medications, as you seemed willing to stop for medical therapies. Encouraged to stop vaping, as in setting of illness that will probably make you have coughing fits as well. Recheck with your regular doctor advised Saturday/early next week if symptoms are persisting. Return to this/nearest emergency department for any change worsening symptoms or any concerns prior. COVID influenza RSV swab was negative Prescriptions: New methocarbamol 500 mg tablet 500 mg PO TID 7 Days Qty: 21 0RF benzonatate 100 mg capsule 100 mg PO BID-TID PRN (Reason: cough) Qty: 14 0RF Stand Alone Forms: Patient Portal/API
[2025-05-19 20:12] LABS: Influenza A - CEPHEID Flu A NEGATIVE (NEGATIVE); Influenza B - CEPHEID Flu B NEGATIVE (NEGATIVE)
[2025-05-19 20:14] LABS: COVID-19 CEPHEID 4-PLEX PCR Negative (Negative)
[2025-05-19] MEDS: BENZONATATE 100 MG CAPSULE PO (20:19)
[2025-05-19 20:25] VITALS: BP 116/76; PULSE 86; O2SAT 98
== END 2025-05-19 20:30 | disposition home or self-care (01) ==
PROVIDERS: Emergency Provider Emergency Medicine
DX: J06.9 Acute upper respiratory infection, unspecified (principal); S46.811A Strain of other muscles, fascia and tendons at shoulder and upper arm level, right arm, initial encounter; X58.XXXA Exposure to other specified factors, initial encounter
CPT/HCPCS: 71046; 87637; 94640; 99283